=== PATIENT | male | born 1950 | race American Indian/Alaskan Native ===

== ENCOUNTER 2017-09-11 16:38 | Inpatient (IN) | payer MEDICARE ==
[2017-09-11] MEDS ORDERED: NACL 0.9% 1000 ML IV ONE (18:15)
[2017-09-11] MEDS ORDERED: TYLENOL PO PRN (18:15)
--- NOTE | 2017-09-11 18:19 | Emergency Department Report ---
ED General Adult HPI - General Chief complaint: Weakness Stated complaint: WEAKNESS/STIFFNESS Time Seen by Provider: 09/11/17 18:04 Source: patient, family, EMS (verbal report received from EMS.ems notes not available at time of chart dictation), RN notes reviewed Mode of arrival: Stretcher Limitations: Physical Limitation, Other (patient is delirious) - History of Present Illness Initial comments: Primary care Dr.: Dr. Gerardo Polk Past medical history: Hypertension, high cholesterol, possible BPH This is a 67-year-old male who is unknown to this provider who is brought to the hospital by EMS for generalized weakness. Last known well time a few days ago. Patient accompanied by daughter, who indicates that patient was his normal self on Sunday and Sunday. He was apparently found down at home, by roommates, uncertain duration of time, uncertain mechanism, EMS thinks it was at least 24 hours. EMS reported fever of 102 and tachycardia with normal blood pressure in the field. The patient has no recollection of any events. He denies headache, neck pain, chest pain, abdominal pain, shortness of breath and urinary symptoms. His daughter incidentally relates that he's lost 20 pounds over the past few months she's not sure if he's had colonoscopy or outpatient health care maintenance. -: Gradual Quality: other (see history of present illness) Consistency: other (see hpi) Improves with: other (see history of present illness) Worsens with: other (see history of present illness) Associated Symptoms: confusion, fever/chills, malaise, weakness - Related Data Home Medications Medication Instructions Recorded Confirmed Last Taken Ergocalciferol [Vitamin D2] 50,000 units PO QWEEK 09/11/17 09/11/17 Unknown Lisinopril [Zestril] 10 mg PO QDAY 09/11/17 09/11/17 Unknown Simvastatin [Zocor TAB] 20 mg PO QPM 09/11/17 09/11/17 Unknown Tamsulosin [Flomax] 0.4 mg PO QDAY 09/11/17 09/11/17 Unknown amLODIPine [Norvasc] 10 mg PO QDAY 09/11/17 09/11/17 Unknown Allergies Allergy/AdvReac Type Severity Reaction Status Date / Time shrimp Allergy Unknown Verified 09/12/17 14:19 ED Review of Systems ROS: Stated complaint: WEAKNESS/STIFFNESS Other details as noted in HPI Comment: Unobtainable due to pts medical conditions ED Past Medical Hx - Medications Home Medications: Home Medications Medication Instructions Recorded Confirmed Last Taken Type Ergocalciferol [Vitamin D2] 50,000 units PO QWEEK 09/11/17 09/11/17 Unknown History Lisinopril [Zestril] 10 mg PO QDAY 09/11/17 09/11/17 Unknown History Simvastatin [Zocor TAB] 20 mg PO QPM 09/11/17 09/11/17 Unknown History Tamsulosin [Flomax] 0.4 mg PO QDAY 09/11/17 09/11/17 Unknown History amLODIPine [Norvasc] 10 mg PO QDAY 09/11/17 09/11/17 Unknown History ED Physical Exam - General Limitations: Altered Mental Status, Physical Limitation, Other (patient is delirious and a poor historian) General appearance: alert, in no apparent distress - Head Head exam: Present: atraumatic, normocephalic - Eye Eye exam: Present: normal appearance, EOMI. Absent: nystagmus - ENT ENT exam: Present: mucous membranes dry - Neck Neck exam: Present: normal inspection, full ROM - Respiratory Respiratory exam: Present: normal lung sounds bilaterally, decreased breath sounds. Absent: respiratory distress - Cardiovascular Cardiovascular Exam: Present: normal rhythm, tachycardia, normal heart sounds. Absent: systolic murmur, diastolic murmur, rubs, gallop - GI/Abdominal GI/Abdominal exam: Present: soft, normal bowel sounds. Absent: distended, tenderness, guarding, rebound, rigid, pulsatile mass - Rectal Rectal exam: Present: normal inspection - exam: Present: normal inspection. Absent: testicular tenderness External exam: Present: normal external exam - Extremities Exam Extremities exam: Present: normal inspection, other (eczematous lesions noted on the bilateral lower extremities. 2+ pulses noted in the bilateral upper, lower extremities. Compartments soft. No long bony tenderness.). Absent: tenderness - Back Exam Back exam: Present: normal inspection, full ROM. Absent: paraspinal tenderness , vertebral tenderness - Neurological Exam Neurological exam: Present: alert, CN II-XII intact, other (Extraocular movements intact. Tongue midline. No facial droop. Facial sensation intact to light touch in the V1, V2, V3 distribution bilaterally. 5 and 5 strength in 4 extremities.. Sensation is intact to light touch in 4 extremities.). Absent : motor sensory deficit - Psychiatric Psychiatric exam: Present: normal affect, normal mood - Skin Skin exam: Present: warm. Absent: rash ED Course Vital Signs 09/11/17 09/11/17 09/11/17 18:08 18:10 18:15 Temperature 100.8 F H Pulse Rate 103 H 107 H 108 H Respiratory 20 23 18 Rate Blood Pressure 145/71 170/87 Blood Pressure 145/71 [Left] O2 Sat by Pulse 98 97 98 Oximetry 09/11/17 09/11/17 09/11/17 18:30 18:45 19:03 Temperature Pulse Rate 105 H 105 H 108 H Respiratory 12 29 H Rate Blood Pressure 154/80 150/79 150/79 Blood Pressure [Left] O2 Sat by Pulse 98 Oximetry 09/11/17 09/11/17 09/11/17 19:15 19:30 19:45 Temperature Pulse Rate 102 H 103 H 94 H Respiratory 31 H 25 H 23 Rate Blood Pressure 147/75 150/77 140/69 Blood Pressure [Left] O2 Sat by Pulse 96 97 97 Oximetry 09/11/17 09/11/17 09/11/17 19:48 20:00 20:15 Temperature Pulse Rate 108 H 104 H 111 H Respiratory 26 H 16 Rate Blood Pressure 137/76 137/68 Blood Pressure [Left] O2 Sat by Pulse 96 96 Oximetry 09/11/17 09/11/17 09/11/17 20:30 20:45 21:00 Temperature Pulse Rate 100 H 97 H 91 H Respiratory 25 H 25 H 25 H Rate Blood Pressure 140/75 138/75 136/71 Blood Pressure [Left] O2 Sat by Pulse 93 94 93 Oximetry 09/11/17 09/11/17 09/11/17 21:15 21:30 21:46 Temperature Pulse Rate 94 H 98 H 101 H Respiratory 26 H 27 H 22 Rate Blood Pressure 141/73 145/80 145/80 Blood Pressure [Left] O2 Sat by Pulse 93 95 Oximetry 09/11/17 09/11/17 09/11/17 22:00 22:15 22:30 Temperature Pulse Rate 91 H 105 H 92 H Respiratory 24 15 24 Rate Blood Pressure 133/74 165/105 149/78 Blood Pressure [Left] O2 Sat by Pulse 95 98 96 Oximetry 06/09/11/17 09/11/17 22:45 23:00 23:15 Temperature Pulse Rate 93 H 81 92 H Respiratory 20 20 17 Rate Blood Pressure 140/83 144/74 148/80 Blood Pressure [Left] O2 Sat by Pulse 98 97 98 Oximetry 09/11/17 09/11/17 09/11/17 23:30 23:33 23:41 Temperature Pulse Rate 95 H 97 H 90 Respiratory 25 H 26 H 20 Rate Blood Pressure 144/108 144/108 144/108 Blood Pressure [Left] O2 Sat by Pulse 97 100 99 Oximetry 09/12/17 00:07 Temperature 100.0 F H Pulse Rate 90 Respiratory 20 Rate Blood Pressure 137/78 Blood Pressure [Left] O2 Sat by Pulse 96 Oximetry - Reevaluation(s) Reevaluation #1: 09/11/17 18:27 Differential diagnosis, including are not limited to: Bacteremia, pneumonia, urinary tract infection, debility Assessment and plan: 67-year-old male with acute febrile illness, delirium, generalized weakness. He is febrile, tachycardic, with appropriate blood pressure. No obvious foci of infection clinically at this time. Patient will be treated empirically according to the sepsis pathway with IV fluids, ceftriaxone, daughter reports no recent hospitalizations, he will be admitted once his initial data points return. Reevaluation #2: 09/11/17 19:33 Dr Aiken accepts patient to the medical service Reevaluation #3: 09/11/17 19:41 chest with no obvious infiltrates. [facility] ED Medical Decision Making - Lab Data Result diagrams: 09/13/17 08:02 09/13/17 08:02 Sinus tachycardia, 103 bpm, premature complex, motion artifact, QTC within normal limits, not a stemi Vital Signs 09/11/17 09/11/17 09/11/17 18:08 18:10 18:15 Temperature 100.8 F H Pulse Rate 103 H 107 H 108 H Respiratory 20 23 18 Rate Blood Pressure 145/71 170/87 Blood Pressure 145/71 [Left] O2 Sat by Pulse 98 97 98 Oximetry 09/11/17 09/11/17 18:30 18:45 Temperature Pulse Rate 105 H 105 H Respiratory 12 29 H Rate Blood Pressure 154/80 150/79 Blood Pressure [Left] O2 Sat by Pulse 98 Oximetry Labs 09/11/17 09/11/17 09/11/17 18:16 18:47 18:47 WBC 10.0 RBC 4.50 Hgb 14.5 Hct 43.4 MCV 96 H MCH 32 MCHC 33 RDW 14.4 Plt Count 75 L Lymph % (Auto) 7.7 L [place] % (Auto) 12.0 H Eos % (Auto) 0.0 Baso % (Auto) 0.2 Lymph # 0.8 L [place] # 1.2 H Eos # 0.0 Baso # 0.0 Seg Neutrophils % 80.1 H Seg Neutrophils # 7.8 H APTT 35.1 Sodium Potassium Chloride Carbon Dioxide Anion Gap BUN Creatinine Estimated GFR BUN/Creatinine Ratio Glucose POC Glucose Lactic Acid Calcium Total Bilirubin AST ALT Alkaline Phosphatase Total Creatine Kinase Total Protein Albumin Albumin/Globulin Ratio Urine Color Ella Urine Turbidity Clear Urine pH 6.0 Ur Specific [place] 1.021 Urine Protein 100 mg/dl Urine Glucose (UA) Neg Urine Ketones Neg Urine Blood Lg Urine Nitrite Pos Urine Bilirubin Neg Urine Urobilinogen 4.0 Ur Leukocyte Esterase Lg Urine WBC (Auto) > 182.0 H Urine RBC (Auto) 4.0 U Epithel Cells (Auto) 2.0 Urine Bacteria (Auto) 4+ Urine WBC Clumps 3+ Urine Mucus 3+ 09/11/17 09/11/17 09/11/17 18:47 18:47 19:18 WBC RBC Hgb Hct MCV MCH MCHC RDW Plt Count Lymph % (Auto) [place] % (Auto) Eos % (Auto) Baso % (Auto) Lymph # [place] # Eos # Baso # Seg Neutrophils % Seg Neutrophils # APTT Sodium 139 Potassium 3.2 L Chloride 102.0 Carbon Dioxide 21 L Anion Gap 19 BUN 14 Creatinine 0.7 L Estimated GFR > 60 BUN/Creatinine Ratio 20 Glucose 96 POC Glucose 89 Lactic Acid 3.20 H* Calcium 8.5 Total Bilirubin 1.00 AST 59 H ALT 12 Alkaline Phosphatase 68 Total Creatine Kinase 1555 H Total Protein 8.4 H Albumin 3.0 L Albumin/Globulin Ratio 0.6 Urine Color Urine Turbidity Urine pH Ur Specific [place] Urine Protein Urine Glucose (UA) Urine Ketones Urine Blood Urine Nitrite Urine Bilirubin Urine Urobilinogen Ur Leukocyte Esterase Urine WBC (Auto) Urine RBC (Auto) U Epithel Cells (Auto) Urine Bacteria (Auto) Urine WBC Clumps Urine Mucus - EKG Data -: EKG Interpreted by [place] EKG shows normal: sinus rhythm, axis, intervals, QRS complexes, ST-T waves Rate: tachycardia - Radiology Data Radiology results: report reviewed, image reviewed Noncontrast CT scan of the brain is negative. X-ray of the chest to my interpretation is negative Critical care attestation.: If time is entered above; I have spent that time in minutes in the direct care of this critically ill patient, excluding procedure time. ED Disposition Clinical Impression: Sepsis Qualifiers: Sepsis type: sepsis due to unspecified organism Qualified Code(s): A41.9 - Sepsis, unspecified organism Disposition: 09 OP ADMIT IP TO THIS HOSP Is pt being admited?: Yes Condition: Fair
[2017-09-11 18:57] LABS: Monocytes # (Auto) 1.2 K/mm3 (0.0-0.8)
[2017-09-11] MEDS ORDERED: ROCEPHIN/NS 1 GM/50 ML 1 GM/50 ML BAG IV SCH (19:00)
[2017-09-11 19:15] LABS: Bacteria,Urine 4+ /HPF (Negative); Bilirubin,Urine NEG (Negative); Blood,Urine LG (Negative); Color,Urine Amber (Yellow); Mucus,Urine 3+ /HPF
[2017-09-11 19:22] LABS: WBC,Urine > 182.0 /HPF (0.0-6.0)
[2017-09-11 19:26] LABS: Alanine Aminotransferase 12 units/L (7-56); BUN/Creatinine Ratio 20; Blood Urea Nitrogen 14 mg/dL (9-20); Calcium 8.5 mg/dL (8.4-10.2); Hemolysis Index 5
[2017-09-11] MEDS ORDERED: cefTRIAXone 1 GM in NACL 0.9% 20 ML IV ONE (19:30)
[2017-09-11] MEDS ORDERED: K-DUR PO ONE ×2 (19:32→22:09)
--- NOTE | 2017-09-11 19:43 | Cat Scan Report ---
FINAL REPORT EXAM: CT HEAD/BRAIN WO CON HISTORY: syncope sepsis weakness trauma TECHNIQUE: Noncontrast CT axial images of the brain. PRIORS: None. FINDINGS: No parenchymal mass, hemorrhage, midline shift or hydrocephalus. No evidence of acute cortical infarct. No abnormal, extra-axial fluid or air collection. Patchy low density in the periventricular and subcortical white matter is nonspecific, but may relate to chronic small vessel ischemic change. Focal encephalomalacia in the right frontal region suggesting old ischemic change or infarct. Mild, diffuse volume loss. Osseous calvarium grossly intact. Mild mucosal thickening in the ethmoid sinuses. IMPRESSION: 1. No acute intracranial findings. 2. Chronic ischemic and atrophic changes.
[2017-09-11 19:44] LABS: Basophils % (Auto) 0.2 % (0.0-1.8); Hematocrit 43.4 % (35.5-45.6); Hemoglobin 14.5 gm/dl (11.8-15.2); Lymphocytes # (Auto) 0.8 K/mm3 (1.2-5.4); Lymphocytes % (Auto) 7.7 % (13.4-35.0); Mean Corpuscular HGB Conc 33 % (32-34); Mean Corpuscular Hemoglobin 32 pg (28-32); Mean Corpuscular Volume 96 fl (84-94); Red Cell Distribution Width 14.4 % (13.2-15.2)
[2017-09-11 19:45] LABS: Platelet Count 75 K/mm3 (140-440)
--- NOTE | 2017-09-11 20:01 | Cat Scan Report ---
FINAL REPORT EXAM: CT CERVICAL SPINE WO CON HISTORY: syncope sepsis weakness trauma TECHNIQUE: Spiral CT scanning of the cervical spine, with axial images and multiplanar reformations. PRIORS: None. FINDINGS: Diffuse osteopenia. Diffuse postsurgical change, including anterior compression screw plate fixation device posterior fixation hardware and interspace devices in the C3-6 levels. Multilevel degenerative disc disease and spondylosis, including C1-2 articulation. No acute compression deformity or gross malalignment of cervical vertebral bodies. No acute fracture identified. No acute, osseous central spinal canal encroachment. Paraspinal soft tissues grossly unremarkable. Mandibular condyles noted perched anteriorly on along the articular eminences may be positional versus subluxation. Correlate clinically. IMPRESSION: 1. No acute compression deformity or apparent fracture in the cervical spine. 2. Postsurgical change and degenerative spondylosis.
--- NOTE | 2017-09-11 21:10 | XRay Report ---
FINAL REPORT EXAM: XR CHEST 1V AP HISTORY: sepsios TECHNIQUE: Single, portable chest x-ray. PRIORS: None. FINDINGS: Cardiac and mediastinal silhouette within normal limits. Lungs are normally expanded, without significant vascular congestion. No focal consolidation or apparent pneumothorax. Bony thorax grossly unremarkable. IMPRESSION: 1. No acute consolidation.
[2017-09-11] MEDS ORDERED: ZOFRAN IV PRN (22:31)
[2017-09-11] MEDS ORDERED: SODIUM CHLORIDE FLUSH SYRINGE 10 ML IV PRN (22:31)
--- NOTE | 2017-09-11 22:34 | History and Physical Report ---
History of Present Illness Date of examination: 09/11/17 History of present illness: This is a 67-year-old man with history of hypertension was brought to the ER for evaluation. He was was found on the floor and couldnt get up. A review of system is difficult to obtain PAST MEDICAL HISTORY: hypertension PAST SURGICAL HISTORY: Unknown SOCIAL HISTORY: Unknown FAMILY HISTORY: Unknown Medications and Allergies Allergies Allergy/AdvReac Type Severity Reaction Status Date / Time shrimp Allergy Unknown Verified 09/12/17 14:19 Home Medications Medication Instructions Recorded Confirmed Last Taken Type Ergocalciferol [Vitamin D2] 50,000 units PO QWEEK 09/11/17 09/11/17 Unknown History Lisinopril [Zestril] 10 mg PO QDAY 09/11/17 09/11/17 Unknown History Simvastatin [Zocor TAB] 20 mg PO QPM 09/11/17 09/11/17 Unknown History Tamsulosin [Flomax] 0.4 mg PO QDAY 09/11/17 09/11/17 Unknown History amLODIPine [Norvasc] 10 mg PO QDAY 09/11/17 09/11/17 Unknown History Active Meds: Active Medications Acetaminophen (Tylenol) 650 mg PO Q6H PRN PRN Reason: Pain, Mild (1-3) Last Admin: 09/11/17 18:40 Dose: 650 mg Acetaminophen (Tylenol) 650 mg PO Q4H PRN PRN Reason: Pain MILD(1-3)/Fever >100.5/LINDSEY Amlodipine Besylate (Norvasc) 10 mg PO QDAY [facility] Enoxaparin Sodium (Lovenox) 30 mg SUB-Q QDAY [facility] Sodium Chloride (Nacl 0.9% 1000 Ml) 1,000 mls @ 100 mls/hr IV DIRECT A[facility]ON Lisinopril (Zestril) 10 mg PO QDAY [facility] Miscellaneous Medication (Simvastatin) 20 mg PO QPM [facility] Ondansetron HCl (Zofran) 4 mg IV Q8H PRN PRN Reason: Nausea And Vomiting Sodium Chloride (Sodium Chloride Flush Syringe 10 Ml) 10 ml IV BID AARON Sodium Chloride (Sodium Chloride Flush Syringe 10 Ml) 10 ml IV PRN PRN PRN Reason: LINE FLUSH Tamsulosin HCl (Flomax) 0.4 mg PO QDAY [facility] Exam - Physical Exam Narrative exam: Gen. appearance: Patient lying in bed, no apparent distress HEENT: Normocephalic, atraumatic, pupils equally round and reactive to light, extraocular movement intact, and no sclericterus,. No JVD or thyromegaly or nodule,neck supple, no carotid bruit ,mucous membranes dry, no exudate or erythema Heart: S1, S2, regular rate and rhythm Lungs: Clear bilaterally, breathing comfortable Abdomen: Positive bowel sounds, nontender, nondistended, no organomegaly Extremity:no edema cyanosis, clubbing Neuro: Oriented to self, cranial nerves II-12 intact, speech is fluent, moves all 4 extremities - Constitutional Vitals: Temp Pulse Resp BP Pulse Ox 100.8 F H 108 H 25 H 150/77 97 09/11/17 18:10 09/11/17 19:48 09/11/17 19:30 09/11/17 19:30 09/11/17 19:30 Results - Labs CBC & Chem 7: 09/12/17 14:00 09/12/17 14:00 Labs: Abnormal lab results 09/11/17 09/11/17 09/11/17 Range/Units 18:16 18:47 18:47 MCV 96 H (84-94) fl Plt Count 75 L (140-440) K/mm3 Lymph % (Auto) 7.7 L (13.4-35.0) % [place] % (Auto) 12.0 H (0.0-7.3) % Lymph # 0.8 L (1.2-5.4) K/mm3 [place] # 1.2 H (0.0-0.8) K/mm3 Seg Neutrophils % 80.1 H (40.0-70.0) % Seg Neutrophils # 7.8 H (1.8-7.7) K/mm3 Potassium 3.2 L (3.6-5.0) mmol/L Carbon Dioxide 21 L (22-30) mmol/L Creatinine 0.7 L (0.8-1.5) mg/dL Lactic Acid (0.7-2.0) mmol/L AST 59 H (5-40) units/L Total Creatine Kinase 1555 H (55-170) units/L Total Protein 8.4 H (6.3-8.2) g/dL Albumin 3.0 L (3.9-5) g/dL Urine WBC (Auto) > 182.0 H (0.0-6.0) /HPF 09/11/17 Range/Units 18:47 MCV (84-94) fl Plt Count (140-440) K/mm3 Lymph % (Auto) (13.4-35.0) % [place] % (Auto) (0.0-7.3) % Lymph # (1.2-5.4) K/mm3 [place] # (0.0-0.8) K/mm3 Seg Neutrophils % (40.0-70.0) % Seg Neutrophils # (1.8-7.7) K/mm3 Potassium (3.6-5.0) mmol/L Carbon Dioxide (22-30) mmol/L Creatinine (0.8-1.5) mg/dL Lactic Acid 3.20 H* (0.7-2.0) mmol/L AST (5-40) units/L Total Creatine Kinase (55-170) units/L Total Protein (6.3-8.2) g/dL Albumin (3.9-5) g/dL Urine WBC (Auto) (0.0-6.0) /HPF Assessment and Plan Assessment Encephalopathy due to UTI Rhabdomyolysis UTI Hypertension Paln Admit to medicine Start IV antibiotic,fluid, follow cultures Continue appropiate outpatient medications
[2017-09-11] MEDS ORDERED: cefTRIAXone 1 GM in NACL 0.9% 20 ML IV SCH (23:00)
--- NOTE | 2017-09-12 09:39 | Progress Note ---
Assessment and Plan Assessment and plan: --Metabolic encephalopathy; Probably secondary to UTI, supportive care --History of fall; fall precautions physical therapy occupational therapy --Bilateral Lower extremity weakness; PT OT Consider MRI lumbosacral spine --History of spine surgery; supportive care PT OT as needed --Sepsis secondary to urinary tract infection; Continue empiric antibiotics, follow cultures --Rhabdomyolysis; IV fluids and trend creatinine levels,Preserved renal function --Hypertension; moderate control Continue current antihypertensives and when necessary medications --Dyslipidemia; continue lipid lowering medicine and low cholesterol diet --History of BPH; resume Flomax --DVT prophylaxis with Lovenox We'll closely monitor the patient and adjust management as needed History Interval history: Patient was admitted with a history of found on the floor, unable to get up Patient feels slightly better, No new episodes of fall Workup is in progress Vital Signs reviewed Hospitalist Physical - Constitutional Vitals: Temp Pulse Resp BP Pulse Ox 100.0 F H 90 20 137/78 96 09/12/17 00:07 09/12/17 00:07 09/12/17 00:07 09/12/17 00:07 09/12/17 00:07 General appearance: Present: no acute distress, cachectic, disheveled - EENT Eyes: Present: PERRL, EOM intact - Neck Neck: Present: supple, normal ROM - Respiratory Respiratory effort: normal Respiratory: bilateral: diminished, negative: rales, rhonchi, wheezing - Cardiovascular Rhythm: regular Heart Sounds: Present: S1 & S2 - Extremities Extremities: no ischemia, No edema - Abdominal General gastrointestinal: soft, non-tender, non-distended, normal bowel sounds - Integumentary Integumentary: Present: clear, warm - Psychiatric Psychiatric: appropriate mood/affect, cooperative - Neurologic Neurologic: CNII-XII intact, moves all extremities Results - Labs CBC & Chem 7: 09/13/17 08:02 09/13/17 08:02 Labs: Laboratory Last Values WBC 10.0 K/mm3 (4.5-11.0) 09/11/17 18:47 RBC 4.50 M/mm3 (3.65-5.03) 09/11/17 18:47 Hgb 14.5 gm/dl (11.8-15.2) 09/11/17 18:47 Hct 43.4 % (35.5-45.6) 18 18:47 MCV 96 fl (84-94) H 18 18:47 MCH 32 pg (28-32) 18 18:47 MCHC 33 % (32-34) 18 18:47 RDW 14.4 % (13.2-15.2) 18 18:47 Plt Count 75 K/mm3 (140-440) L 09/11/17 18:47 Lymph % (Auto) 7.7 % (13.4-35.0) L 18 18:47 [place] % (Auto) 12.0 % (0.0-7.3) H 09/11/17 18:47 Eos % (Auto) 0.0 % (0.0-4.3) 09/11/17 18:47 Baso % (Auto) 0.2 % (0.0-1.8) 09/11/17 18:47 Lymph # 0.8 K/mm3 (1.2-5.4) L 09/11/17 18:47 [place] # 1.2 K/mm3 (0.0-0.8) H 18 18:47 Eos # 0.0 K/mm3 (0.0-0.4) 18 18:47 Baso # 0.0 K/mm3 (0.0-0.1) 18 18:47 Seg Neutrophils % 80.1 % (40.0-70.0) H 09/11/17 18:47 Seg Neutrophils # 7.8 K/mm3 (1.8-7.7) H 18 18:47 APTT 35.1 Sec. (24.2-36.6) 18 18:47 Sodium 139 mmol/L (137-145) 18 18:47 Potassium 3.2 mmol/L (3.6-5.0) L 09/11/17 18:47 Chloride 102.0 mmol/L (98-107) 18 18:47 Carbon Dioxide 21 mmol/L (22-30) L 18 18:47 Anion Gap 19 mmol/L 09/11/17 18:47 BUN 14 mg/dL (9-20) 09/11/17 18:47 Creatinine 0.7 mg/dL (0.8-1.5) L 09/11/17 18:47 Estimated GFR > 60 ml/min 09/11/17 18:47 BUN/Creatinine Ratio 20 % 09/11/17 18:47 Glucose 96 mg/dL (75-100) 09/11/17 18:47 POC Glucose 89 (70-105) 09/11/17 19:18 Lactic Acid 1.50 mmol/L (0.7-2.0) 09/11/17 19:59 Calcium 8.5 mg/dL (8.4-10.2) 09/11/17 18:47 Magnesium 2.00 mg/dL (1.7-2.3) 09/11/17 19:35 Total Bilirubin 1.00 mg/dL (0.1-1.2) 09/11/17 18:47 AST 59 units/L (5-40) H 09/11/17 18:47 ALT 12 units/L (7-56) 09/11/17 18:47 Alkaline Phosphatase 68 units/L (35-129) 09/11/17 18:47 Total Creatine Kinase 1555 units/L (55-170) H 09/11/17 18:47 Total Protein 8.4 g/dL (6.3-8.2) H 09/11/17 18:47 Albumin 3.0 g/dL (3.9-5) L 09/11/17 18:47 Albumin/Globulin Ratio 0.6 % 09/11/17 18:47 Urine Color Ella (Yellow) 09/11/17 18:16 Urine Turbidity Clear (Clear) 09/11/17 18:16 Urine pH 6.0 (5.0-7.0) 09/11/17 18:16 Ur Specific [place] 1.021 (1.003-1.030) 09/11/17 18:16 Urine Protein 100 mg/dl mg/dL (Negative) 09/11/17 18:16 Urine Glucose (UA) Neg mg/dL (Negative) 09/11/17 18:16 Urine Ketones Neg mg/dL (Negative) 09/11/17 18:16 Urine Blood Lg (Negative) 09/11/17 18:16 Urine Nitrite Pos (Negative) 09/11/17 18:16 Urine Bilirubin Neg (Negative) 09/11/17 18:16 Urine Urobilinogen 4.0 mg/dL (<2.0) 09/11/17 18:16 Ur Leukocyte Esterase Lg (Negative) 09/11/17 18:16 Urine WBC (Auto) > 182.0 /HPF (0.0-6.0) H 09/11/17 18:16 Urine RBC (Auto) 4.0 /HPF (0.0-6.0) 09/11/17 18:16 U Epithel Cells (Auto) 2.0 /HPF (0-13.0) 09/11/17 18:16 Urine Bacteria (Auto) 4+ /HPF (Negative) 09/11/17 18:16 Urine WBC Clumps 3+ /HPF 09/11/17 18:16 Urine Mucus 3+ /HPF 09/11/17 18:16 Blood Type A POSITIVE 09/11/17 18:40 Antibody Screen Negative 09/11/17 18:40
[2017-09-12] MEDS ORDERED: ROCEPHIN/NS 1 GM/50 ML 1 GM/50 ML BAG IV SCH (10:00)
[2017-09-12] MEDS: ZESTRIL PO SCH (12:12)
[2017-09-12] MEDS: NORVASC PO SCH (12:13)
[2017-09-12] MEDS: FLOMAX PO SCH (12:13)
[2017-09-12] MEDS: LOVENOX SUB-Q SCH (12:13)
[2017-09-12] MEDS: SODIUM CHLORIDE FLUSH SYRINGE 10 ML IV SCH ×2 (12:14→22:51)
[2017-09-12] MEDS: cefTRIAXone 1 GM in NACL 0.9% 20 ML IV SCH (12:55)
[2017-09-12 14:45] LABS: Basophils % (Auto) 0.2 % (0.0-1.8); Hematocrit 42.6 % (35.5-45.6); Hemoglobin 14.3 gm/dl (11.8-15.2); Lymphocytes # (Auto) 0.9 K/mm3 (1.2-5.4); Lymphocytes % (Auto) 6.5 % (13.4-35.0); Mean Corpuscular HGB Conc 34 % (32-34); Mean Corpuscular Hemoglobin 33 pg (28-32); Mean Corpuscular Volume 97 fl (84-94); Monocytes # (Auto) 1.1 K/mm3 (0.0-0.8); Monocytes % (Auto) 8.4 % (0.0-7.3); Red Cell Distribution Width 14.7 % (13.2-15.2)
[2017-09-12] MEDS: TYLENOL PO PRN ×2 (14:54→20:49)
[2017-09-12 14:58] LABS: Platelet Count 68 K/mm3 (140-440)
[2017-09-12 15:02] LABS: BUN/Creatinine Ratio 20; Blood Urea Nitrogen 12 mg/dL (9-20); Calcium 8.1 mg/dL (8.4-10.2); Hemolysis Index 25
[2017-09-12] MEDS: NACL 0.9% 1000 ML 1,000 ML IV SCH (19:19)
[2017-09-12] MEDS ORDERED: K-DUR PO ONE (22:00)
[2017-09-12] MEDS: PRAVACHOL PO SCH (22:50)
[2017-09-13] MEDS: TYLENOL PO PRN (04:17)
[2017-09-13] MEDS: NACL 0.9% 1000 ML 1,000 ML IV SCH (04:18)
[2017-09-13 08:17] LABS: Basophils % (Auto) 0.2 % (0.0-1.8); Eosinophils % (Auto) 0.1 % (0.0-4.3); Hematocrit 38.8 % (35.5-45.6); Lymphocytes % (Auto) 12.2 % (13.4-35.0); Mean Corpuscular HGB Conc 34 % (32-34); Mean Corpuscular Hemoglobin 32 pg (28-32); Mean Corpuscular Volume 96 fl (84-94); Monocytes # (Auto) 0.7 K/mm3 (0.0-0.8); Monocytes % (Auto) 8.6 % (0.0-7.3); Red Blood Count 4.05 M/mm3 (3.65-5.03); Red Cell Distribution Width 14.5 % (13.2-15.2)
[2017-09-13 08:19] LABS: Platelet Count 53 K/mm3 (140-440)
[2017-09-13 08:37] LABS: BUN/Creatinine Ratio 23; Blood Urea Nitrogen 9 mg/dL (9-20); Calcium 7.8 mg/dL (8.4-10.2); Hemolysis Index 7
[2017-09-13] MEDS: NORVASC PO SCH (09:35)
[2017-09-13] MEDS: ZESTRIL PO SCH (09:35)
[2017-09-13] MEDS: LOVENOX SUB-Q SCH (09:36)
[2017-09-13] MEDS: FLOMAX PO SCH (09:36)
[2017-09-13] MEDS: cefTRIAXone 1 GM in NACL 0.9% 20 ML IV SCH (09:36)
[2017-09-13] MEDS: K-DUR PO SCH (09:36)
[2017-09-13] MEDS: SODIUM CHLORIDE FLUSH SYRINGE 10 ML IV SCH ×2 (09:37→23:12)
--- NOTE | 2017-09-13 11:28 | Progress Note ---
Assessment and Plan Assessment and plan: --Metabolic encephalopathy; Probably secondary to UTI, supportive care --History of fall; fall precautions physical therapy occupational therapy --Bilateral Lower extremity weakness; PT OT Consider MRI lumbosacral spine, neurology consult --History of spine surgery; supportive care PT OT as needed --Sepsis secondary to urinary tract infection; Continue empiric antibiotics, follow cultures --Rhabdomyolysis; IV fluids and trend creatinine levels,Preserved renal function --Hypertension; moderate control Continue current antihypertensives and when necessary medications --Dyslipidemia; continue lipid lowering medicine and low cholesterol diet --History of BPH; resume Flomax --DVT prophylaxis with Lovenox We'll closely monitor the patient and adjust management as needed History Interval history: Patient seen and examined medical records reviewed Complaints of generalized weakness lower extremities Alert awake oriented 3 vital signs reviewed, Hospitalist Physical - Constitutional Vitals: Temp Pulse Resp BP Pulse Ox 98.8 F 73 18 125/66 99 09/13/17 08:51 09/13/17 09:35 09/13/17 08:51 09/13/17 09:35 09/13/17 08:51 General appearance: Present: no acute distress, cachectic, disheveled - EENT Eyes: Present: PERRL, EOM intact - Neck Neck: Present: supple, normal ROM - Respiratory Respiratory effort: normal Respiratory: bilateral: diminished, negative: rales, rhonchi, wheezing - Cardiovascular Rhythm: regular Heart Sounds: Present: S1 & S2 - Extremities Extremities: no ischemia, No edema, abnormal (lower extremity weakness) - Abdominal General gastrointestinal: soft, non-tender, non-distended, normal bowel sounds - Integumentary Integumentary: Present: clear, warm - Psychiatric Psychiatric: appropriate mood/affect, cooperative - Neurologic Neurologic: CNII-XII intact, moves all extremities Results - Labs CBC & Chem 7: 09/13/17 08:02 09/13/17 08:02 Labs: Laboratory Last Values WBC 7.8 K/mm3 (4.5-11.0) 09/13/17 08:02 RBC 4.05 M/mm3 (3.65-5.03) 09/13/17 08:02 Hgb 13.0 gm/dl (11.8-15.2) 09/13/17 08:02 Hct 38.8 % (35.5-45.6) 09/13/17 08:02 MCV 96 fl (84-94) H 09/13/17 08:02 MCH 32 pg (28-32) 09/13/17 08:02 MCHC 34 % (32-34) 09/13/17 08:02 RDW 14.5 % (13.2-15.2) 09/13/17 08:02 Plt Count 53 K/mm3 (140-440) L 09/13/17 08:02 Lymph % (Auto) 12.2 % (13.4-35.0) L 09/13/17 08:02 [place] % (Auto) 8.6 % (0.0-7.3) H 09/13/17 08:02 Eos % (Auto) 0.1 % (0.0-4.3) 09/13/17 08:02 Baso % (Auto) 0.2 % (0.0-1.8) 09/13/17 08:02 Lymph # 1.0 K/mm3 (1.2-5.4) L 09/13/17 08:02 [place] # 0.7 K/mm3 (0.0-0.8) 09/13/17 08:02 Eos # 0.0 K/mm3 (0.0-0.4) 09/13/17 08:02 Baso # 0.0 K/mm3 (0.0-0.1) 09/13/17 08:02 Seg Neutrophils % 78.9 % (40.0-70.0) H 09/13/17 08:02 Seg Neutrophils # 6.2 K/mm3 (1.8-7.7) 09/13/17 08:02 APTT 35.1 Sec. (24.2-36.6) 09/11/17 18:47 Sodium 139 mmol/L (137-145) 09/13/17 08:02 Potassium 3.4 mmol/L (3.6-5.0) L 09/13/17 08:02 Chloride 105.2 mmol/L (98-107) 09/13/17 08:02 Carbon Dioxide 24 mmol/L (22-30) 09/13/17 08:02 Anion Gap 13 mmol/L 09/13/17 08:02 BUN 9 mg/dL (9-20) 09/13/17 08:02 Creatinine 0.4 mg/dL (0.8-1.5) L 09/13/17 08:02 Estimated GFR > 60 ml/min 09/13/17 08:02 BUN/Creatinine Ratio 23 % 09/13/17 08:02 Glucose 78 mg/dL (75-100) 09/13/17 08:02 POC Glucose 89 (70-105) 09/11/17 19:18 Lactic Acid 1.50 mmol/L (0.7-2.0) 09/11/17 19:59 Calcium 7.8 mg/dL (8.4-10.2) L 09/13/17 08:02 Magnesium 2.00 mg/dL (1.7-2.3) 09/11/17 19:35 Total Bilirubin 1.00 mg/dL (0.1-1.2) 09/11/17 18:47 AST 59 units/L (5-40) H 09/11/17 18:47 ALT 12 units/L (7-56) 09/11/17 18:47 Alkaline Phosphatase 68 units/L (35-129) 09/11/17 18:47 Total Creatine Kinase 2.62 units/L (55-170) L 09/13/17 08:02 Total Protein 8.4 g/dL (6.3-8.2) H 09/11/17 18:47 Albumin 3.0 g/dL (3.9-5) L 09/11/17 18:47 Albumin/Globulin Ratio 0.6 % 09/11/17 18:47 Urine Color Ella (Yellow) 09/11/17 18:16 Urine Turbidity Clear (Clear) 09/11/17 18:16 Urine pH 6.0 (5.0-7.0) 09/11/17 18:16 Ur Specific [place] 1.021 (1.003-1.030) 09/11/17 18:16 Urine Protein 100 mg/dl mg/dL (Negative) 09/11/17 18:16 Urine Glucose (UA) Neg mg/dL (Negative) 09/11/17 18:16 Urine Ketones Neg mg/dL (Negative) 09/11/17 18:16 Urine Blood Lg (Negative) 09/11/17 18:16 Urine Nitrite Pos (Negative) 09/11/17 18:16 Urine Bilirubin Neg (Negative) 09/11/17 18:16 Urine Urobilinogen 4.0 mg/dL (<2.0) 09/11/17 18:16 Ur Leukocyte Esterase Lg (Negative) 09/11/17 18:16 Urine WBC (Auto) > 182.0 /HPF (0.0-6.0) H 09/11/17 18:16 Urine RBC (Auto) 4.0 /HPF (0.0-6.0) 09/11/17 18:16 U Epithel Cells (Auto) 2.0 /HPF (0-13.0) 09/11/17 18:16 Urine Bacteria (Auto) 4+ /HPF (Negative) 09/11/17 18:16 Urine WBC Clumps 3+ /HPF 09/11/17 18:16 Urine Mucus 3+ /HPF 09/11/17 18:16 Blood Type A POSITIVE 09/11/17 18:40 Antibody Screen Negative 09/11/17 18:40
--- NOTE | 2017-09-13 13:56 | Consultation ---
History of Present Illness Consult date: 09/13/17 Requesting physician: THI MONZON Reason for Consult: AMS and leg weakness. Chief complaint: Confuse and leg weakness. History of present illness: 67 years old right handed male with a past medical history of arthritis and HTN, presented for confuse and leg weakness. He has had both leg weakness for one and a half year. His legs also were painful to touch. He saw physician for these, but can't tell what kind of doctor's. He also was confuse on Sunday, but improved.The HPI was obtained from him and his daughter at bed side. Past History Past Medical History: arthritis, hypertension Past Surgical History: Other (cervical spinal laminectomy and fusions.) Social history: other (tobacco, alcohol and marijuana.) Medications and Allergies Allergies Allergy/AdvReac Type Severity Reaction Status Date / Time shrimp Allergy Unknown Verified 09/12/17 14:19 Home Medications Medication Instructions Recorded Confirmed Last Taken Type Ergocalciferol [Vitamin D2] 50,000 units PO QWEEK 09/11/17 09/11/17 Unknown History Lisinopril [Zestril] 10 mg PO QDAY 09/11/17 09/11/17 Unknown History Simvastatin [Zocor TAB] 20 mg PO QPM 09/11/17 09/11/17 Unknown History Tamsulosin [Flomax] 0.4 mg PO QDAY 09/11/17 09/11/17 Unknown History amLODIPine [Norvasc] 10 mg PO QDAY 09/11/17 09/11/17 Unknown History Active Meds: Active Medications Acetaminophen (Tylenol) 650 mg PO Q4H PRN PRN Reason: Pain MILD(1-3)/Fever >100.5/LINDSEY Last Admin: 09/13/17 04:17 Dose: 650 mg Amlodipine Besylate (Norvasc) 10 mg PO QDAY [facility] Last Admin: 09/13/17 09:35 Dose: 10 mg Enoxaparin Sodium (Lovenox) 40 mg SUB-Q QDAY [facility] Last Admin: 09/13/17 09:36 Dose: 40 mg Sodium Chloride (Nacl 0.9% 1000 Ml) 1,000 mls @ 100 mls/hr IV DIRECT [facility] Last Admin: 09/13/17 04:18 Dose: 100 mls/hr Ceftriaxone Sodium 1 gm/ (Sodium Chloride) 20 mls @ 2 mls/min IV Q24HR [facility] Last Admin: 09/13/17 09:36 Dose: 2 mls/min Lisinopril (Zestril) 10 mg PO QDAY [facility] Last Admin: 09/13/17 09:35 Dose: 10 mg Ondansetron HCl (Zofran) 4 mg IV Q8H PRN PRN Reason: Nausea And Vomiting Potassium Chloride (K-Dur) 30 meq PO QDAY [facility] Last Admin: 09/13/17 09:36 Dose: 30 meq Pravastatin Sodium (Pravachol) 40 mg PO QHS [facility] Last Admin: 09/12/17 22:50 Dose: 40 mg Sodium Chloride (Sodium Chloride Flush Syringe 10 Ml) 10 ml IV BID [facility] Last Admin: 09/13/17 09:37 Dose: 10 ml Sodium Chloride (Sodium Chloride Flush Syringe 10 Ml) 10 ml IV PRN PRN PRN Reason: LINE FLUSH Tamsulosin HCl (Flomax) 0.4 mg PO QDAY [facility] Last Admin: 09/13/17 09:36 Dose: 0.4 mg Review of Systems Constitutional: other (both leg weakness, leg skin collors changes. All other 10 points of systems are reviewed and negative.) Physical Examination - Vital Signs Vital Signs: Vital Signs Pulse Resp Pulse Ox 103 H 20 98 09/11/17 18:08 09/11/17 18:08 09/11/17 18:08 - Constitutional General appearance: comfortable - EENT EENT: Present: PERRL, mucous membranes moist - Respiratory Respiratory: Present: chest non-tender, lungs clear - Cardiovascular Cardiovascular: Present: regular rate, no murmurs Extremities: Present: no peripheral edema bilatateraly, no clubbing, cyanosis, chronic venous stasis change - Gastrointestinal Gastrointestinal: Present: soft, non-tender - Integumentary Integumentary: Present: erythema - Neurologic Cranial nerve examination: PERRL, EOMI, V1/V2/V3 grossly intact, intact Speech examination: intact Detailed motor examination: other (uppers 5/5, lowers, proximal 2/5, distal 3/5 bilaterally.) Reflexes: 0: ankle, knee, 1+: bicep, tricep - Musculoskeletal Musculoskeletal: Present: other (tenderness in both legs.) - Psychiatric Psychiatric: Present: mood/affect appropriate Results - Laboratory Findings CBC and BMP: 09/13/17 08:02 09/13/17 08:02 Abnormal Lab Findings: Abnormal Labs 09/11/17 09/11/17 09/11/17 18:16 18:47 18:47 WBC MCV 96 H MCH Plt Count 75 L Lymph % (Auto) 7.7 L [place] % (Auto) 12.0 H Lymph # 0.8 L [place] # 1.2 H Seg Neutrophils % 80.1 H Seg Neutrophils # 7.8 H Potassium 3.2 L Carbon Dioxide 21 L Creatinine 0.7 L Lactic Acid Calcium AST 59 H Total Creatine Kinase 1555 H Total Protein 8.4 H Albumin 3.0 L Urine WBC (Auto) > 182.0 H 09/11/17 09/12/17 09/12/17 18:47 14:00 14:00 WBC 13.4 H MCV 97 H MCH 33 H Plt Count 68 L Lymph % (Auto) 6.5 L [place] % (Auto) 8.4 H Lymph # 0.9 L [place] # 1.1 H Seg Neutrophils % 84.9 H Seg Neutrophils # 11.3 H Potassium 3.4 L Carbon Dioxide Creatinine 0.6 L Lactic Acid 3.20 H* Calcium 8.1 L AST Total Creatine Kinase Total Protein Albumin Urine WBC (Auto) 09/13/17 09/13/17 08:02 08:02 WBC MCV 96 H MCH Plt Count 53 L Lymph % (Auto) 12.2 L [place] % (Auto) 8.6 H Lymph # 1.0 L [place] # Seg Neutrophils % 78.9 H Seg Neutrophils # Potassium 3.4 L Carbon Dioxide Creatinine 0.4 L Lactic Acid Calcium 7.8 L AST Total Creatine Kinase 2.62 L Total Protein Albumin Urine WBC (Auto) Assessment and Plan 1. Progressively both leg weakness for one and half years, proximal > distal, probably myopathy, peripheral neuropathy as differential. Lumbar MRI without contrast. 2. CK was high. TSH, red rate and B12 level. 3. OT/PT, rehab. 4. Quit multiple substance abuse. Thiamine. 5. DVT prophylaxis. Suggest Doppler legs. 6. AMS. Resolved. Probably encephalopathy due to UTI. 7. UTI. Antibiotics. 8. Plan discussed with him and his daughter at bed side. 9. If D/C, F/U with neurology in 4-6 weeks.
[2017-09-13] MEDS: PRAVACHOL PO SCH (23:12)
[2017-09-14] MEDS: NACL 0.9% 1000 ML 1,000 ML IV SCH ×2 (01:04→12:04)
--- NOTE | 2017-09-14 10:11 | Progress Note ---
Assessment and Plan 1. Progressively both leg weakness for one and half years, proximal > distal, probably myopathy, peripheral neuropathy as differential. Pending lumbar MRI without contrast. If negative, will consider thoracic and cervical spinal MRI without contrast. If spinal stenosis, orthopaedic or neurosurgery consult. 2. CK, creatinine, TSH, and B12 level, all normal ranges. Pending sed rate. 3. OT/PT, rehab. 4. Quit multiple substance abuse. Thiamine. 5. DVT prophylaxis. Suggest Doppler legs. 6. AMS. Resolved. Probably encephalopathy due to UTI or sepsis. 7. UTI. Antibiotics. 8. Please call weekend coverage neurology for following or further suggestions. 9. Plan discussed with him. 10. If D/C, F/U with neurology in 4-6 weeks, need out patient nerve conduction, EMG studies. May need muscle or nerve biopsy. Subjective Date of service: 09/14/17 Principal diagnosis: leg weakness. Interval history: Improved. No new neurological complaints. Objective - Vital Sign Vital Signs - 12hr 09/14/17 09/14/17 01:38 08:08 Temperature 100.1 F H 99.2 F Pulse Rate 88 82 Respiratory 18 18 Rate Blood Pressure 137/67 137/77 O2 Sat by Pulse 98 97 Oximetry - General Apperance Constitutional: comfortable - EENT EENT: PERRL, mucous membranes moist - Respiratory Respiratory: chest non-tender, lungs clear - Cardiovascular Cardiovascular: regular rate, no murmurs - Gastrointestinal Gastrointestinal: soft, non-tender - Integumentary Integumentary: normal - Neurologic Cranial nerve examination: PERRL, EOMI, V1/V2/V3 grossly intact, intact Speech examination: intact Detailed motor examination: other (U[place] 5/5, loweres, proximal 2/5, distal 3/ 5 bilaterally. Leg tenderness to touch.) Detailed sensory examination: other (decreased in lowers.) Reflexes: 0: ankle, knee, 1+: bicep, tricep - Laboratory Findings CBC and BMP: 09/13/17 08:02 09/13/17 08:02 Abnormal Lab Findings: Abnormal Labs 09/11/17 09/11/17 09/11/17 18:16 18:47 18:47 WBC MCV 96 H MCH Plt Count 75 L Lymph % (Auto) 7.7 L [place] % (Auto) 12.0 H Lymph # 0.8 L [place] # 1.2 H Seg Neutrophils % 80.1 H Seg Neutrophils # 7.8 H Potassium 3.2 L Carbon Dioxide 21 L Creatinine 0.7 L Lactic Acid Calcium AST 59 H Total Creatine Kinase 1555 H Total Protein 8.4 H Albumin 3.0 L Urine WBC (Auto) > 182.0 H 09/11/17 09/12/17 09/12/17 18:47 14:00 14:00 WBC 13.4 H MCV 97 H MCH 33 H Plt Count 68 L Lymph % (Auto) 6.5 L [place] % (Auto) 8.4 H Lymph # 0.9 L [place] # 1.1 H Seg Neutrophils % 84.9 H Seg Neutrophils # 11.3 H Potassium 3.4 L Carbon Dioxide Creatinine 0.6 L Lactic Acid 3.20 H* Calcium 8.1 L AST Total Creatine Kinase Total Protein Albumin Urine WBC (Auto) 09/13/17 09/13/17 08:02 08:02 WBC MCV 96 H MCH Plt Count 53 L Lymph % (Auto) 12.2 L [place] % (Auto) 8.6 H Lymph # 1.0 L [place] # Seg Neutrophils % 78.9 H Seg Neutrophils # Potassium 3.4 L Carbon Dioxide Creatinine 0.4 L Lactic Acid Calcium 7.8 L AST Total Creatine Kinase 2.62 L Total Protein Albumin Urine WBC (Auto)
[2017-09-14] MEDS: K-DUR PO SCH (12:04)
[2017-09-14] MEDS: FLOMAX PO SCH (12:04)
[2017-09-14] MEDS: cefTRIAXone 1 GM in NACL 0.9% 20 ML IV SCH (12:05)
[2017-09-14] MEDS: LOVENOX SUB-Q SCH (12:05)
[2017-09-14] MEDS: NORVASC PO SCH (12:05)
[2017-09-14] MEDS: ZESTRIL PO SCH (12:05)
[2017-09-14] MEDS: SODIUM CHLORIDE FLUSH SYRINGE 10 ML IV SCH ×2 (12:06→21:27)
[2017-09-14] MEDS: TYLENOL PO PRN (15:56)
--- NOTE | 2017-09-14 18:35 | Magnetic Resonance Report ---
FINAL REPORT EXAM: MR LUMBAR SPINE WO CON HISTORY: Bilateral leg weakness. TECHNIQUE: MRI examination of the lumbar spine without IV contrast pt motion BA: 09/14/2017 PRIORS: None. FINDINGS: Numbering for this exam assumes that there are 5 non-rib bearing lumbar vertebral bodies. Recommend correlation with lumbar x-rays to ensure accurate vertebral numbering prior to consideration of surgery or other lumbar intervention in this patient. Patient motion artifact degrades image quality and limits the examination. Conus medullaris signal and position: Normal Marrow signal changes adjacent to the following disc levels, likely from degenerative disc disease: T11 through S1. Heterogeneous vertebral bone marrow signal may be from a mixture of red and yellow marrow. Bone marrow edema: None Vertebral compression fracture: None Anterolisthesis: None Retrolisthesis: None Disc narrowing: None Diffuse disc bulge: T12-L1 minimal, L3-4 slight, L4-5 slight, L5-S1 slight Focal disc protrusion: None Central canal stenosis: L3-4 moderate, L4-5 slight to moderate Lateral recess stenosis: T11-12 slight right, L3-4 moderate bilateral, L4-5 moderate bilateral, L5-S1 slight to moderate bilateral There is multilevel degenerative hypertrophic changes at the facet joints and vertebral endplates. Along with disc bulge, these contribute to neural foraminal stenosis. Right neural foraminal stenosis: L3-4 slight, L4-5 slight, L5-S1 slight to moderate Left neural foraminal stenosis: L3-4 slight, L4-5 moderate, L5-S1 moderate IMPRESSION: Heterogeneous vertebral bone marrow signal may be from mixture of red and yellow marrow Multilevel degenerative change, disc bulge, central canal stenosis, lateral recess stenosis, and neural foraminal stenosis
--- NOTE | 2017-09-14 19:26 | Progress Note ---
Assessment and Plan Assessment and plan: --Bilateral Lower extremity weakness; PT OT Follow MRI lumbosacral spine, neurology following --Metabolic encephalopathy; Probably secondary to UTI, supportive care --History of fall; fall precautions physical therapy occupational therapy --History of spine surgery; supportive care PT OT as needed --Sepsis secondary to urinary tract infection; Continue empiric antibiotics, follow cultures --Rhabdomyolysis; IV fluids and trend creatinine levels,Preserved renal function --Hypertension; moderate control Continue current antihypertensives and when necessary medications --Dyslipidemia; continue lipid lowering medicine and low cholesterol diet --History of BPH; resume Flomax --DVT prophylaxis with Lovenox We'll closely monitor the patient and adjust management as needed History Interval history: Patient seen and examined medical records Patient is scheduled for MRI today Complaints of bilateral lower extremity weakness Vital signs reviewed Hospitalist Physical - Constitutional Vitals: Temp Pulse Resp BP Pulse Ox 99.2 F 82 18 137/77 97 09/14/17 08:08 09/14/17 12:05 09/14/17 08:08 09/14/17 12:05 09/14/17 08:08 General appearance: Present: no acute distress, cachectic, disheveled - EENT Eyes: Present: PERRL, EOM intact - Neck Neck: Present: supple, normal ROM - Respiratory Respiratory effort: normal Respiratory: bilateral: diminished, negative: rales, rhonchi, wheezing - Cardiovascular Rhythm: regular Heart Sounds: Present: S1 & S2 - Extremities Extremities: no ischemia Extremity abnormal: edema - Abdominal General gastrointestinal: soft, non-tender, non-distended - Integumentary Integumentary: Present: clear, warm - Psychiatric Psychiatric: appropriate mood/affect, cooperative - Neurologic Neurologic: other (residual weakness) Results - Labs CBC & Chem 7: 09/13/17 08:02 09/13/17 08:02 Labs: Laboratory Last Values WBC 7.8 K/mm3 (4.5-11.0) 09/13/17 08:02 RBC 4.05 M/mm3 (3.65-5.03) 09/13/17 08:02 Hgb 13.0 gm/dl (11.8-15.2) 09/13/17 08:02 Hct 38.8 % (35.5-45.6) 09/13/17 08:02 MCV 96 fl (84-94) H 09/13/17 08:02 MCH 32 pg (28-32) 09/13/17 08:02 MCHC 34 % (32-34) 09/13/17 08:02 RDW 14.5 % (13.2-15.2) 09/13/17 08:02 Plt Count 53 K/mm3 (140-440) L 09/13/17 08:02 Lymph % (Auto) 12.2 % (13.4-35.0) L 09/13/17 08:02 [place] % (Auto) 8.6 % (0.0-7.3) H 09/13/17 08:02 Eos % (Auto) 0.1 % (0.0-4.3) 09/13/17 08:02 Baso % (Auto) 0.2 % (0.0-1.8) 09/13/17 08:02 Lymph # 1.0 K/mm3 (1.2-5.4) L 09/13/17 08:02 [place] # 0.7 K/mm3 (0.0-0.8) 09/13/17 08:02 Eos # 0.0 K/mm3 (0.0-0.4) 09/13/17 08:02 Baso # 0.0 K/mm3 (0.0-0.1) 09/13/17 08:02 Seg Neutrophils % 78.9 % (40.0-70.0) H 09/13/17 08:02 Seg Neutrophils # 6.2 K/mm3 (1.8-7.7) 09/13/17 08:02 ESR 62 mm/Hr (0-20) 09/13/17 14:34 APTT 35.1 Sec. (24.2-36.6) 09/11/17 18:47 Sodium 139 mmol/L (137-145) 09/13/17 08:02 Potassium 3.4 mmol/L (3.6-5.0) L 09/13/17 08:02 Chloride 105.2 mmol/L (98-107) 09/13/17 08:02 Carbon Dioxide 24 mmol/L (22-30) 09/13/17 08:02 Anion Gap 13 mmol/L 09/13/17 08:02 BUN 9 mg/dL (9-20) 09/13/17 08:02 Creatinine 0.4 mg/dL (0.8-1.5) L 09/13/17 08:02 Estimated GFR > 60 ml/min 09/13/17 08:02 BUN/Creatinine Ratio 23 % 09/13/17 08:02 Glucose 78 mg/dL (75-100) 09/13/17 08:02 POC Glucose 89 (70-105) 09/11/17 19:18 Lactic Acid 1.50 mmol/L (0.7-2.0) 09/11/17 19:59 Calcium 7.8 mg/dL (8.4-10.2) L 09/13/17 08:02 Magnesium 2.00 mg/dL (1.7-2.3) 09/11/17 19:35 Total Bilirubin 1.00 mg/dL (0.1-1.2) 09/11/17 18:47 AST 59 units/L (5-40) H 09/11/17 18:47 ALT 12 units/L (7-56) 09/11/17 18:47 Alkaline Phosphatase 68 units/L (35-129) 09/11/17 18:47 Total Creatine Kinase 2.62 units/L (55-170) L 09/13/17 08:02 Total Protein 8.4 g/dL (6.3-8.2) H 09/11/17 18:47 Albumin 3.0 g/dL (3.9-5) L 09/11/17 18:47 Albumin/Globulin Ratio 0.6 % 09/11/17 18:47 Vitamin B12 315.1 pg/mL (211-911) 09/13/17 14:34 TSH 3.940 mlU/mL (0.270-4.200) 09/13/17 14:34 Urine Color Ella (Yellow) 09/11/17 18:16 Urine Turbidity Clear (Clear) 09/11/17 18:16 Urine pH 6.0 (5.0-7.0) 09/11/17 18:16 Ur Specific [place] 1.021 (1.003-1.030) 09/11/17 18:16 Urine Protein 100 mg/dl mg/dL (Negative) 09/11/17 18:16 Urine Glucose (UA) Neg mg/dL (Negative) 09/11/17 18:16 Urine Ketones Neg mg/dL (Negative) 09/11/17 18:16 Urine Blood Lg (Negative) 09/11/17 18:16 Urine Nitrite Pos (Negative) 09/11/17 18:16 Urine Bilirubin Neg (Negative) 09/11/17 18:16 Urine Urobilinogen 4.0 mg/dL (<2.0) 09/11/17 18:16 Ur Leukocyte Esterase Lg (Negative) 09/11/17 18:16 Urine WBC (Auto) > 182.0 /HPF (0.0-6.0) H 09/11/17 18:16 Urine RBC (Auto) 4.0 /HPF (0.0-6.0) 09/11/17 18:16 U Epithel Cells (Auto) 2.0 /HPF (0-13.0) 09/11/17 18:16 Urine Bacteria (Auto) 4+ /HPF (Negative) 09/11/17 18:16 Urine WBC Clumps 3+ /HPF 09/11/17 18:16 Urine Mucus 3+ /HPF 09/11/17 18:16 Blood Type A POSITIVE 09/11/17 18:40 Antibody Screen Negative 09/11/17 18:40
[2017-09-14] MEDS: PRAVACHOL PO SCH (21:27)
[2017-09-15] MEDS: NACL 0.9% 1000 ML 1,000 ML IV SCH ×3 (01:44→20:47)
[2017-09-15] MEDS: LOVENOX SUB-Q SCH (11:39)
[2017-09-15] MEDS: NORVASC PO SCH (11:40)
[2017-09-15] MEDS: cefTRIAXone 1 GM in NACL 0.9% 20 ML IV SCH (11:40)
[2017-09-15] MEDS: FLOMAX PO SCH (11:41)
[2017-09-15] MEDS: K-DUR PO SCH (11:41)
[2017-09-15] MEDS: ZESTRIL PO SCH (11:41)
[2017-09-15] MEDS: SODIUM CHLORIDE FLUSH SYRINGE 10 ML IV SCH ×3 (11:56→21:35)
--- NOTE | 2017-09-15 19:08 | Progress Note ---
Assessment and Plan Assessment and plan: --Bilateral Lower extremity weakness; PT OT MRI lumbosacral spine ; Heterogeneous vertebral bone marrow signal may be from the share of red and yellow marrow, Multilevel degenerative spine disease, disc bulge, central canal stenosis, lateral recess stenosis, neural foraminal stenosis Patient has been having this progressive symptoms for the last 1 and 1 and half years[as documented by neurology] --Metabolic encephalopathy; Probably secondary to UTI, supportive care --History of fall; fall precautions physical therapy occupational therapy --History of spine surgery; supportive care PT OT as needed --Sepsis secondary to urinary tract infection; Escherichia coli Sensitive to Rocephin, continue current antibiotics --Rhabdomyolysis; IV fluids and trend creatinine levels,Preserved renal function --Hypertension; moderate control Continue current antihypertensives and when necessary medications --Dyslipidemia; continue lipid lowering medicine and low cholesterol diet --History of BPH; resume Flomax --DVT prophylaxis with Lovenox We'll closely monitor the patient and adjust management as needed History Interval history: Patient seen and examined medical records reviewed Clinically stable no new changes Vital signs noted Patient has no new complaints Hospitalist Physical - Constitutional Vitals: Temp Pulse Resp BP Pulse Ox 99.4 F 117 H 20 148/96 97 09/15/17 13:34 09/15/17 13:34 09/15/17 13:34 09/15/17 13:34 09/15/17 13:34 General appearance: Present: no acute distress, cachectic, disheveled - EENT Eyes: Present: PERRL, EOM intact - Neck Neck: Present: supple, normal ROM - Respiratory Respiratory effort: normal Respiratory: bilateral: diminished, negative: rales, rhonchi, wheezing - Cardiovascular Rhythm: regular Heart Sounds: Present: S1 & S2 - Extremities Extremities: No edema, abnormal (progressive weakness unable to move lower extremities) - Abdominal General gastrointestinal: soft, non-tender, non-distended, normal bowel sounds - Integumentary Integumentary: Present: clear, warm - Psychiatric Psychiatric: appropriate mood/affect, cooperative - Neurologic Neurologic: CNII-XII intact, moves all extremities Results - Labs CBC & Chem 7: 09/13/17 08:02 09/13/17 08:02 Labs: Laboratory Last Values WBC 7.8 K/mm3 (4.5-11.0) 09/13/17 08:02 RBC 4.05 M/mm3 (3.65-5.03) 09/13/17 08:02 Hgb 13.0 gm/dl (11.8-15.2) 09/13/17 08:02 Hct 38.8 % (35.5-45.6) 09/13/17 08:02 MCV 96 fl (84-94) H 09/13/17 08:02 MCH 32 pg (28-32) 09/13/17 08:02 MCHC 34 % (32-34) 09/13/17 08:02 RDW 14.5 % (13.2-15.2) 09/13/17 08:02 Plt Count 53 K/mm3 (140-440) L 09/13/17 08:02 Lymph % (Auto) 12.2 % (13.4-35.0) L 09/13/17 08:02 [place] % (Auto) 8.6 % (0.0-7.3) H 09/13/17 08:02 Eos % (Auto) 0.1 % (0.0-4.3) 09/13/17 08:02 Baso % (Auto) 0.2 % (0.0-1.8) 09/13/17 08:02 Lymph # 1.0 K/mm3 (1.2-5.4) L 09/13/17 08:02 [place] # 0.7 K/mm3 (0.0-0.8) 09/13/17 08:02 Eos # 0.0 K/mm3 (0.0-0.4) 09/13/17 08:02 Baso # 0.0 K/mm3 (0.0-0.1) 09/13/17 08:02 Seg Neutrophils % 78.9 % (40.0-70.0) H 09/13/17 08:02 Seg Neutrophils # 6.2 K/mm3 (1.8-7.7) 09/13/17 08:02 ESR 62 mm/Hr (0-20) 09/13/17 14:34 APTT 35.1 Sec. (24.2-36.6) 09/11/17 18:47 Sodium 139 mmol/L (137-145) 09/13/17 08:02 Potassium 3.4 mmol/L (3.6-5.0) L 09/13/17 08:02 Chloride 105.2 mmol/L (98-107) 09/13/17 08:02 Carbon Dioxide 24 mmol/L (22-30) 09/13/17 08:02 Anion Gap 13 mmol/L 09/13/17 08:02 BUN 9 mg/dL (9-20) 09/13/17 08:02 Creatinine 0.4 mg/dL (0.8-1.5) L 09/13/17 08:02 Estimated GFR > 60 ml/min 09/13/17 08:02 BUN/Creatinine Ratio 23 % 09/13/17 08:02 Glucose 78 mg/dL (75-100) 09/13/17 08:02 POC Glucose 89 (70-105) 09/11/17 19:18 Lactic Acid 1.50 mmol/L (0.7-2.0) 09/11/17 19:59 Calcium 7.8 mg/dL (8.4-10.2) L 09/13/17 08:02 Magnesium 2.00 mg/dL (1.7-2.3) 09/11/17 19:35 Total Bilirubin 1.00 mg/dL (0.1-1.2) 09/11/17 18:47 AST 59 units/L (5-40) H 09/11/17 18:47 ALT 12 units/L (7-56) 09/11/17 18:47 Alkaline Phosphatase 68 units/L (35-129) 09/11/17 18:47 Total Creatine Kinase 2.62 units/L (55-170) L 09/13/17 08:02 Total Protein 8.4 g/dL (6.3-8.2) H 09/11/17 18:47 Albumin 3.0 g/dL (3.9-5) L 09/11/17 18:47 Albumin/Globulin Ratio 0.6 % 09/11/17 18:47 Vitamin B12 315.1 pg/mL (211-911) 09/13/17 14:34 TSH 3.940 mlU/mL (0.270-4.200) 09/13/17 14:34 Urine Color Ella (Yellow) 09/11/17 18:16 Urine Turbidity Clear (Clear) 09/11/17 18:16 Urine pH 6.0 (5.0-7.0) 09/11/17 18:16 Ur Specific [place] 1.021 (1.003-1.030) 09/11/17 18:16 Urine Protein 100 mg/dl mg/dL (Negative) 09/11/17 18:16 Urine Glucose (UA) Neg mg/dL (Negative) 09/11/17 18:16 Urine Ketones Neg mg/dL (Negative) 09/11/17 18:16 Urine Blood Lg (Negative) 09/11/17 18:16 Urine Nitrite Pos (Negative) 09/11/17 18:16 Urine Bilirubin Neg (Negative) 09/11/17 18:16 Urine Urobilinogen 4.0 mg/dL (<2.0) 09/11/17 18:16 Ur Leukocyte Esterase Lg (Negative) 09/11/17 18:16 Urine WBC (Auto) > 182.0 /HPF (0.0-6.0) H 09/11/17 18:16 Urine RBC (Auto) 4.0 /HPF (0.0-6.0) 09/11/17 18:16 U Epithel Cells (Auto) 2.0 /HPF (0-13.0) 09/11/17 18:16 Urine Bacteria (Auto) 4+ /HPF (Negative) 09/11/17 18:16 Urine WBC Clumps 3+ /HPF 09/11/17 18:16 Urine Mucus 3+ /HPF 09/11/17 18:16 Blood Type A POSITIVE 09/11/17 18:40 Antibody Screen Negative 09/11/17 18:40
[2017-09-15] MEDS: TYLENOL PO PRN (20:07)
[2017-09-15] MEDS: PRAVACHOL PO SCH ×2 (20:48→21:34)
[2017-09-16] MEDS: NACL 0.9% 1000 ML 1,000 ML IV SCH ×3 (05:32→17:06)
[2017-09-16 06:20] LABS: Hematocrit 42.2 % (35.5-45.6); Hemoglobin 14.3 gm/dl (11.8-15.2); Mean Corpuscular HGB Conc 34 % (32-34); Mean Corpuscular Hemoglobin 33 pg (28-32); Mean Corpuscular Volume 97 fl (84-94); Red Blood Count 4.36 M/mm3 (3.65-5.03); Red Cell Distribution Width 14.4 % (13.2-15.2)
[2017-09-16 06:55] LABS: BUN/Creatinine Ratio 13; Blood Urea Nitrogen 5 mg/dL (9-20); Calcium 8.1 mg/dL (8.4-10.2); Hemolysis Index 49
[2017-09-16] MEDS: cefTRIAXone 1 GM in NACL 0.9% 20 ML IV SCH (09:50)
[2017-09-16] MEDS: ZESTRIL PO SCH (09:51)
[2017-09-16] MEDS: LOVENOX SUB-Q SCH (09:51)
[2017-09-16] MEDS: NORVASC PO SCH (09:51)
[2017-09-16] MEDS: FLOMAX PO SCH (09:51)
[2017-09-16] MEDS: K-DUR PO SCH (09:51)
[2017-09-16] MEDS: SODIUM CHLORIDE FLUSH SYRINGE 10 ML IV SCH ×2 (09:51→22:01)
[2017-09-16 10:12] LABS: Basophils % (Manual) 0 % (0.0-1.8); Platelet Estimate Appears Decreased; RBC Morphology Normal; Total Cells Counted 100
[2017-09-16 10:23] LABS: Platelet Count 77 K/mm3 (140-440)
--- NOTE | 2017-09-16 15:04 | Event Note ---
Date: 09/16/17 I reviewed lumbar spine MRI showing mild stenosis at L5-S1 centrally and some foraminal stenosis at several levels, not clear that this accounts for leg weakness, so I have ordered cervical and thoracic spine MRIs. If either shows significant spinal stenosis, he should be referred to neurosurgery as an outpatient. Signing off, call if any unusual MRI findings.
--- NOTE | 2017-09-16 15:35 | Progress Note ---
Assessment and Plan Assessment and plan: --Leukopenia/thrombocytopenia; due to underlying disease process Closely monitor --Bilateral Lower extremity weakness; PT OT Neurology recommended MRI C-spine and thoracic spine MRI lumbosacral spine ; Heterogeneous vertebral bone marrow signal may be from the share of red and yellow marrow, Multilevel degenerative spine disease, disc bulge, central canal stenosis, lateral recess stenosis, neural foraminal stenosis Patient has been having this progressive symptoms for the last 1 and 1 and half years[as documented by neurology] --Metabolic encephalopathy; Probably secondary to UTI, supportive care --History of fall; fall precautions physical therapy occupational therapy --History of spine surgery; supportive care PT OT as needed --Sepsis secondary to urinary tract infection; Escherichia coli Sensitive to Rocephin, --Rhabdomyolysis; continue gentle IV hydration Creatinine levels trending down in 200s --Hypertension; well controlled on current medications --Dyslipidemia; continue lipid lowering medicine and low cholesterol diet --History of BPH; resume Flomax --DVT prophylaxis with Lovenox We'll closely monitor the patient and adjust management as needed History Interval history: Patient seen and examined medical records reviewed No new events reported, Continues to have lower extremity weakness Receiving Physical therapy and occupational therapy Alert awake oriented 3,Vital signs reviewed . Hospitalist Physical - Constitutional Vitals: Temp Pulse Resp BP Pulse Ox 96.9 F L 78 20 134/73 98 09/16/17 08:17 09/16/17 08:17 09/16/17 10:00 09/16/17 08:17 09/16/17 08:17 General appearance: Present: no acute distress, cachectic, disheveled - EENT Eyes: Present: PERRL, EOM intact - Neck Neck: Present: supple, normal ROM - Respiratory Respiratory effort: normal Respiratory: bilateral: diminished, negative: rales, rhonchi, wheezing - Cardiovascular Rhythm: regular Heart Sounds: Present: S1 & S2 - Extremities Extremities: No edema - Abdominal General gastrointestinal: soft, non-tender, non-distended, normal bowel sounds - Integumentary Integumentary: Present: clear, warm - Psychiatric Psychiatric: appropriate mood/affect, cooperative - Neurologic Neurologic: other (lower extremity weakness) Results - Labs CBC & Chem 7: 09/16/17 05:31 09/16/17 05:31 Labs: Laboratory Last Values WBC 2.0 K/mm3 (4.5-11.0) L 09/16/17 05:31 RBC 4.36 M/mm3 (3.65-5.03) 09/16/17 05:31 Hgb 14.3 gm/dl (11.8-15.2) 09/16/17 05:31 Hct 42.2 % (35.5-45.6) 09/16/17 05:31 MCV 97 fl (84-94) H 09/16/17 05:31 MCH 33 pg (28-32) H 09/16/17 05:31 MCHC 34 % (32-34) 09/16/17 05:31 RDW 14.4 % (13.2-15.2) 09/16/17 05:31 Plt Count 77 K/mm3 (140-440) L 09/16/17 05:31 Lymph % (Auto) 12.2 % (13.4-35.0) L 09/13/17 08:02 [place] % (Auto) Information Technology Advisor 09/16/17 05:31 Eos % (Auto) 0.1 % (0.0-4.3) 09/13/17 08:02 Baso % (Auto) 0.2 % (0.0-1.8) 09/13/17 08:02 Lymph # 1.0 K/mm3 (1.2-5.4) L 09/13/17 08:02 [place] # 0.7 K/mm3 (0.0-0.8) 09/13/17 08:02 Eos # 0.0 K/mm3 (0.0-0.4) 09/13/17 08:02 Baso # 0.0 K/mm3 (0.0-0.1) 09/13/17 08:02 Add Manual Diff Complete 09/16/17 05:31 Total Counted 100 09/16/17 05:31 Seg Neutrophils % 78.9 % (40.0-70.0) H 09/13/17 08:02 Seg Neuts % (Manual) 54.0 % (40.0-70.0) 09/16/17 05:31 Band Neutrophils % 0 % 09/16/17 05:31 Lymphocytes % (Manual) 20.0 % (13.4-35.0) 09/16/17 05:31 Reactive Lymphs % (Man) 0 % 09/16/17 05:31 Monocytes % (Manual) 22.0 % (0.0-7.3) H 09/16/17 05:31 Eosinophils % (Manual) 2.0 % (0.0-4.3) 09/16/17 05:31 Basophils % (Manual) 0 % (0.0-1.8) 09/16/17 05:31 Metamyelocytes % 2.0 % 09/16/17 05:31 Myelocytes % 0 % 09/16/17 05:31 Promyelocytes % 0 % 09/16/17 05:31 Blast Cells % 0 % 09/16/17 05:31 Nucleated RBC % Not Reportable 09/16/17 05:31 Seg Neutrophils # 6.2 K/mm3 (1.8-7.7) 09/13/17 08:02 Seg Neutrophils # Man 1.1 K/mm3 (1.8-7.7) L 09/16/17 05:31 Band Neutrophils # 0.0 K/mm3 09/16/17 05:31 Lymphocytes # (Manual) 0.4 K/mm3 (1.2-5.4) L 09/16/17 05:31 Abs React Lymphs (Man) 0.0 K/mm3 09/16/17 05:31 Monocytes # (Manual) 0.4 K/mm3 (0.0-0.8) 09/16/17 05:31 Eosinophils # (Manual) 0.0 K/mm3 (0.0-0.4) 09/16/17 05:31 Basophils # (Manual) 0.0 K/mm3 (0.0-0.1) 09/16/17 05:31 Metamyelocytes # 0.0 K/mm3 09/16/17 05:31 Myelocytes # 0.0 K/mm3 09/16/17 05:31 Promyelocytes # 0.0 K/mm3 09/16/17 05:31 Blast Cells # 0.0 K/mm3 09/16/17 05:31 WBC Morphology Not Reportable 09/16/17 05:31 Hypersegmented Neuts Not Reportable 09/16/17 05:31 Hyposegmented Neuts Not Reportable 09/16/17 05:31 Hypogranular Neuts Not Reportable 09/16/17 05:31 Smudge Cells Not Reportable 09/16/17 05:31 Toxic Granulation Not Reportable 09/16/17 05:31 Toxic Vacuolation Not Reportable 09/16/17 05:31 Dohle Bodies Not Reportable 09/16/17 05:31 Pelger-Huet Anomaly Not Reportable 09/16/17 05:31 Anil Rods Not Reportable 09/16/17 05:31 Platelet Estimate Appears decreased 09/16/17 05:31 Clumped Platelets Not Reportable 09/16/17 05:31 Plt Clumps, EDTA Not Reportable 09/16/17 05:31 Large Platelets Not Reportable 09/16/17 05:31 Giant Platelets Not Reportable 09/16/17 05:31 Platelet Satelliting Not Reportable 09/16/17 05:31 Plt Morphology Comment Not Reportable 09/16/17 05:31 RBC Morphology Normal 09/16/17 05:31 Dimorphic RBCs Not Reportable 09/16/17 05:31 Polychromasia Not Reportable 09/16/17 05:31 Hypochromasia Not Reportable 09/16/17 05:31 Poikilocytosis Not Reportable 09/16/17 05:31 Anisocytosis Not Reportable 09/16/17 05:31 Microcytosis Not Reportable 09/16/17 05:31 Macrocytosis Not Reportable 09/16/17 05:31 Spherocytes Not Reportable 09/16/17 05:31 Pappenheimer Bodies Not Reportable 09/16/17 05:31 Sickle Cells Not Reportable 09/16/17 05:31 Target Cells Not Reportable 09/16/17 05:31 Tear Drop Cells Not Reportable 09/16/17 05:31 Ovalocytes Not Reportable 09/16/17 05:31 Helmet Cells Not Reportable 09/16/17 05:31 [place] Bodies Not Reportable 09/16/17 05:31 [place] Rings Not Reportable 09/16/17 05:31 [place] Cells Not Reportable 09/16/17 05:31 Bite Cells Not Reportable 09/16/17 05:31 Crenated Cell Not Reportable 09/16/17 05:31 Elliptocytes Not Reportable 09/16/17 05:31 Acanthocytes (Spur) Not Reportable 09/16/17 05:31 Rouleaux Not Reportable 09/16/17 05:31 Hemoglobin C Crystals Not Reportable 09/16/17 05:31 Schistocytes Not Reportable 09/16/17 05:31 Malaria parasites Not Reportable 09/16/17 05:31 ESR 62 mm/Hr (0-20) 09/13/17 14:34 Jonas Bodies Not Reportable 09/16/17 05:31 Hem Pathologist Commnt No 09/16/17 05:31 APTT 35.1 Sec. (24.2-36.6) 09/11/17 18:47 Sodium 136 mmol/L (137-145) L 09/16/17 05:31 Potassium 3.9 mmol/L (3.6-5.0) 09/16/17 05:31 Chloride 103.6 mmol/L (98-107) 09/16/17 05:31 Carbon Dioxide 21 mmol/L (22-30) L 09/16/17 05:31 Anion Gap 15 mmol/L 09/16/17 05:31 BUN 5 mg/dL (9-20) L 09/16/17 05:31 Creatinine 0.4 mg/dL (0.8-1.5) L 09/16/17 05:31 Estimated GFR > 60 ml/min 09/16/17 05:31 BUN/Creatinine Ratio 13 % 09/16/17 05:31 Glucose 86 mg/dL (75-100) 09/16/17 05:31 POC Glucose 89 (70-105) 09/11/17 19:18 Lactic Acid 1.50 mmol/L (0.7-2.0) 09/11/17 19:59 Calcium 8.1 mg/dL (8.4-10.2) L 09/16/17 05:31 Magnesium 2.00 mg/dL (1.7-2.3) 09/16/17 05:31 Total Bilirubin 1.00 mg/dL (0.1-1.2) 09/11/17 18:47 AST 59 units/L (5-40) H 09/11/17 18:47 ALT 12 units/L (7-56) 09/11/17 18:47 Alkaline Phosphatase 68 units/L (35-129) 09/11/17 18:47 Total Creatine Kinase 233 units/L (55-170) H 09/16/17 05:31 Total Protein 8.4 g/dL (6.3-8.2) H 09/11/17 18:47 Albumin 3.0 g/dL (3.9-5) L 09/11/17 18:47 Albumin/Globulin Ratio 0.6 % 09/11/17 18:47 Vitamin B12 315.1 pg/mL (211-911) 09/13/17 14:34 TSH 3.940 mlU/mL (0.270-4.200) 09/13/17 14:34 Urine Color Ella (Yellow) 09/11/17 18:16 Urine Turbidity Clear (Clear) 09/11/17 18:16 Urine pH 6.0 (5.0-7.0) 09/11/17 18:16 Ur Specific [place] 1.021 (1.003-1.030) 09/11/17 18:16 Urine Protein 100 mg/dl mg/dL (Negative) 09/11/17 18:16 Urine Glucose (UA) Neg mg/dL (Negative) 09/11/17 18:16 Urine Ketones Neg mg/dL (Negative) 09/11/17 18:16 Urine Blood Lg (Negative) 09/11/17 18:16 Urine Nitrite Pos (Negative) 09/11/17 18:16 Urine Bilirubin Neg (Negative) 09/11/17 18:16 Urine Urobilinogen 4.0 mg/dL (<2.0) 09/11/17 18:16 Ur Leukocyte Esterase Lg (Negative) 09/11/17 18:16 Urine WBC (Auto) > 182.0 /HPF (0.0-6.0) H 09/11/17 18:16 Urine RBC (Auto) 4.0 /HPF (0.0-6.0) 09/11/17 18:16 U Epithel Cells (Auto) 2.0 /HPF (0-13.0) 09/11/17 18:16 Urine Bacteria (Auto) 4+ /HPF (Negative) 09/11/17 18:16 Urine WBC Clumps 3+ /HPF 09/11/17 18:16 Urine Mucus 3+ /HPF 09/11/17 18:16 Blood Type A POSITIVE 09/11/17 18:40 Antibody Screen Negative 09/11/17 18:40
[2017-09-16] MEDS: TYLENOL PO PRN (21:58)
[2017-09-16] MEDS: PRAVACHOL PO SCH (21:58)
[2017-09-17] MEDS: NACL 0.9% 1000 ML 1,000 ML IV SCH ×2 (03:10→23:43)
[2017-09-17] MEDS: NORVASC PO SCH (09:33)
[2017-09-17] MEDS: K-DUR PO SCH (09:33)
[2017-09-17] MEDS: FLOMAX PO SCH (09:33)
[2017-09-17] MEDS: ZESTRIL PO SCH (09:33)
[2017-09-17] MEDS: SODIUM CHLORIDE FLUSH SYRINGE 10 ML IV SCH ×2 (09:35→23:42)
[2017-09-17] MEDS: cefTRIAXone 1 GM in NACL 0.9% 20 ML IV SCH (09:35)
--- NOTE | 2017-09-17 14:00 | Progress Note ---
Assessment and Plan Assessment and plan: --Leukopenia/thrombocytopenia; due to underlying disease process Follow labs tomorrow, supportive care --Bilateral Lower extremity weakness; PT OT Neurology recommended MRI C-spine and thoracic spine MRI lumbosacral spine ; Heterogeneous vertebral bone marrow signal may be from the share of red and yellow marrow, Multilevel degenerative spine disease, disc bulge, central canal stenosis, lateral recess stenosis, neural foraminal stenosis Patient has been having this progressive symptoms for the last 1 and 1 and half years[as documented by neurology] --Metabolic encephalopathy; Probably secondary to UTI, supportive care --History of fall; fall precautions physical therapy occupational therapy --History of spine surgery; supportive care PT OT as needed --Sepsis secondary to urinary tract infection; Escherichia coli Sensitive to Rocephin, --Rhabdomyolysis; continue gentle IV hydration Creatinine levels trending down in 200s --Hypertension; well controlled on current medications --Dyslipidemia; continue lipid lowering medicine and low cholesterol diet --History of BPH; resume Flomax --DVT prophylaxis with Lovenox We'll closely monitor the patient and adjust management as needed History Interval history: Patient seen and examined medical records reviewed Tolerated physical therapy walked the hallway with the help of walker and belt held by physical therapy No new events reported by the nursing No new complaints Vital signs reviewed Hospitalist Physical - Constitutional Vitals: Temp Pulse Resp BP Pulse Ox 98.8 F 74 16 136/76 100 09/17/17 08:11 09/17/17 08:11 09/17/17 08:11 09/17/17 09:33 09/17/17 08:11 General appearance: Present: no acute distress, cachectic, disheveled - EENT Eyes: Present: PERRL, EOM intact - Neck Neck: Present: supple, normal ROM - Respiratory Respiratory effort: normal Respiratory: bilateral: diminished, negative: rales, rhonchi, wheezing - Cardiovascular Rhythm: regular Heart Sounds: Present: S1 & S2 - Extremities Extremities: no ischemia, pulses intact - Abdominal General gastrointestinal: soft, non-tender, non-distended, normal bowel sounds - Integumentary Integumentary: Present: clear, warm - Psychiatric Psychiatric: appropriate mood/affect, cooperative - Neurologic Neurologic: moves all extremities (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, minimal weakness on the right side) Results - Labs CBC & Chem 7: 09/16/17 05:31 09/16/17 05:31 Labs: Laboratory Last Values WBC 2.0 K/mm3 (4.5-11.0) L 09/16/17 05:31 RBC 4.36 M/mm3 (3.65-5.03) 09/16/17 05:31 Hgb 14.3 gm/dl (11.8-15.2) 09/16/17 05:31 Hct 42.2 % (35.5-45.6) 09/16/17 05:31 MCV 97 fl (84-94) H 09/16/17 05:31 MCH 33 pg (28-32) H 09/16/17 05:31 MCHC 34 % (32-34) 09/16/17 05:31 RDW 14.4 % (13.2-15.2) 09/16/17 05:31 Plt Count 77 K/mm3 (140-440) L 09/16/17 05:31 Lymph % (Auto) 12.2 % (13.4-35.0) L 09/13/17 08:02 [place] % (Auto) Oyster Worker 09/16/17 05:31 Eos % (Auto) 0.1 % (0.0-4.3) 09/13/17 08:02 Baso % (Auto) 0.2 % (0.0-1.8) 09/13/17 08:02 Lymph # 1.0 K/mm3 (1.2-5.4) L 09/13/17 08:02 [place] # 0.7 K/mm3 (0.0-0.8) 09/13/17 08:02 Eos # 0.0 K/mm3 (0.0-0.4) 09/13/17 08:02 Baso # 0.0 K/mm3 (0.0-0.1) 09/13/17 08:02 Add Manual Diff Complete 09/16/17 05:31 Total Counted 100 09/16/17 05:31 Seg Neutrophils % 78.9 % (40.0-70.0) H 09/13/17 08:02 Seg Neuts % (Manual) 54.0 % (40.0-70.0) 09/16/17 05:31 Band Neutrophils % 0 % 09/16/17 05:31 Lymphocytes % (Manual) 20.0 % (13.4-35.0) 09/16/17 05:31 Reactive Lymphs % (Man) 0 % 09/16/17 05:31 Monocytes % (Manual) 22.0 % (0.0-7.3) H 09/16/17 05:31 Eosinophils % (Manual) 2.0 % (0.0-4.3) 09/16/17 05:31 Basophils % (Manual) 0 % (0.0-1.8) 09/16/17 05:31 Metamyelocytes % 2.0 % 09/16/17 05:31 Myelocytes % 0 % 09/16/17 05:31 Promyelocytes % 0 % 09/16/17 05:31 Blast Cells % 0 % 09/16/17 05:31 Nucleated RBC % Not Reportable 09/16/17 05:31 Seg Neutrophils # 6.2 K/mm3 (1.8-7.7) 09/13/17 08:02 Seg Neutrophils # Man 1.1 K/mm3 (1.8-7.7) L 09/16/17 05:31 Band Neutrophils # 0.0 K/mm3 09/16/17 05:31 Lymphocytes # (Manual) 0.4 K/mm3 (1.2-5.4) L 09/16/17 05:31 Abs React Lymphs (Man) 0.0 K/mm3 09/16/17 05:31 Monocytes # (Manual) 0.4 K/mm3 (0.0-0.8) 09/16/17 05:31 Eosinophils # (Manual) 0.0 K/mm3 (0.0-0.4) 09/16/17 05:31 Basophils # (Manual) 0.0 K/mm3 (0.0-0.1) 09/16/17 05:31 Metamyelocytes # 0.0 K/mm3 09/16/17 05:31 Myelocytes # 0.0 K/mm3 09/16/17 05:31 Promyelocytes # 0.0 K/mm3 09/16/17 05:31 Blast Cells # 0.0 K/mm3 09/16/17 05:31 WBC Morphology Not Reportable 09/16/17 05:31 Hypersegmented Neuts Not Reportable 09/16/17 05:31 Hyposegmented Neuts Not Reportable 09/16/17 05:31 Hypogranular Neuts Not Reportable 09/16/17 05:31 Smudge Cells Not Reportable 09/16/17 05:31 Toxic Granulation Not Reportable 09/16/17 05:31 Toxic Vacuolation Not Reportable 09/16/17 05:31 Dohle Bodies Not Reportable 09/16/17 05:31 Pelger-Huet Anomaly Not Reportable 09/16/17 05:31 Anil Rods Not Reportable 09/16/17 05:31 Platelet Estimate Appears decreased 09/16/17 05:31 Clumped Platelets Not Reportable 09/16/17 05:31 Plt Clumps, EDTA Not Reportable 09/16/17 05:31 Large Platelets Not Reportable 09/16/17 05:31 Giant Platelets Not Reportable 09/16/17 05:31 Platelet Satelliting Not Reportable 09/16/17 05:31 Plt Morphology Comment Not Reportable 09/16/17 05:31 RBC Morphology Normal 09/16/17 05:31 Dimorphic RBCs Not Reportable 09/16/17 05:31 Polychromasia Not Reportable 09/16/17 05:31 Hypochromasia Not Reportable 09/16/17 05:31 Poikilocytosis Not Reportable 09/16/17 05:31 Anisocytosis Not Reportable 09/16/17 05:31 Microcytosis Not Reportable 09/16/17 05:31 Macrocytosis Not Reportable 09/16/17 05:31 Spherocytes Not Reportable 09/16/17 05:31 Pappenheimer Bodies Not Reportable 09/16/17 05:31 Sickle Cells Not Reportable 09/16/17 05:31 Target Cells Not Reportable 09/16/17 05:31 Tear Drop Cells Not Reportable 09/16/17 05:31 Ovalocytes Not Reportable 09/16/17 05:31 Helmet Cells Not Reportable 09/16/17 05:31 [place] Bodies Not Reportable 09/16/17 05:31 [place] Rings Not Reportable 09/16/17 05:31 [place] Cells Not Reportable 09/16/17 05:31 Bite Cells Not Reportable 09/16/17 05:31 Crenated Cell Not Reportable 09/16/17 05:31 Elliptocytes Not Reportable 09/16/17 05:31 Acanthocytes (Spur) Not Reportable 09/16/17 05:31 Rouleaux Not Reportable 09/16/17 05:31 Hemoglobin C Crystals Not Reportable 09/16/17 05:31 Schistocytes Not Reportable 09/16/17 05:31 Malaria parasites Not Reportable 09/16/17 05:31 ESR 62 mm/Hr (0-20) 09/13/17 14:34 Jonas Bodies Not Reportable 09/16/17 05:31 Hem Pathologist Commnt No 09/16/17 05:31 APTT 35.1 Sec. (24.2-36.6) 09/11/17 18:47 Sodium 136 mmol/L (137-145) L 09/16/17 05:31 Potassium 3.9 mmol/L (3.6-5.0) 09/16/17 05:31 Chloride 103.6 mmol/L (98-107) 09/16/17 05:31 Carbon Dioxide 21 mmol/L (22-30) L 09/16/17 05:31 Anion Gap 15 mmol/L 09/16/17 05:31 BUN 5 mg/dL (9-20) L 09/16/17 05:31 Creatinine 0.4 mg/dL (0.8-1.5) L 09/16/17 05:31 Estimated GFR > 60 ml/min 09/16/17 05:31 BUN/Creatinine Ratio 13 % 09/16/17 05:31 Glucose 86 mg/dL (75-100) 09/16/17 05:31 POC Glucose 89 (70-105) 09/11/17 19:18 Lactic Acid 1.50 mmol/L (0.7-2.0) 09/11/17 19:59 Calcium 8.1 mg/dL (8.4-10.2) L 09/16/17 05:31 Magnesium 2.00 mg/dL (1.7-2.3) 09/16/17 05:31 Total Bilirubin 1.00 mg/dL (0.1-1.2) 09/11/17 18:47 AST 59 units/L (5-40) H 09/11/17 18:47 ALT 12 units/L (7-56) 09/11/17 18:47 Alkaline Phosphatase 68 units/L (35-129) 09/11/17 18:47 Total Creatine Kinase 233 units/L (55-170) H 09/16/17 05:31 Total Protein 8.4 g/dL (6.3-8.2) H 09/11/17 18:47 Albumin 3.0 g/dL (3.9-5) L 09/11/17 18:47 Albumin/Globulin Ratio 0.6 % 09/11/17 18:47 Vitamin B12 315.1 pg/mL (211-911) 09/13/17 14:34 TSH 3.940 mlU/mL (0.270-4.200) 09/13/17 14:34 Urine Color Ella (Yellow) 09/11/17 18:16 Urine Turbidity Clear (Clear) 09/11/17 18:16 Urine pH 6.0 (5.0-7.0) 09/11/17 18:16 Ur Specific [place] 1.021 (1.003-1.030) 09/11/17 18:16 Urine Protein 100 mg/dl mg/dL (Negative) 09/11/17 18:16 Urine Glucose (UA) Neg mg/dL (Negative) 09/11/17 18:16 Urine Ketones Neg mg/dL (Negative) 09/11/17 18:16 Urine Blood Lg (Negative) 09/11/17 18:16 Urine Nitrite Pos (Negative) 09/11/17 18:16 Urine Bilirubin Neg (Negative) 09/11/17 18:16 Urine Urobilinogen 4.0 mg/dL (<2.0) 09/11/17 18:16 Ur Leukocyte Esterase Lg (Negative) 09/11/17 18:16 Urine WBC (Auto) > 182.0 /HPF (0.0-6.0) H 09/11/17 18:16 Urine RBC (Auto) 4.0 /HPF (0.0-6.0) 18 18:16 U Epithel Cells (Auto) 2.0 /HPF (0-13.0) 09/11/17 18:16 Urine Bacteria (Auto) 4+ /HPF (Negative) 09/11/17 18:16 Urine WBC Clumps 3+ /HPF 09/11/17 18:16 Urine Mucus 3+ /HPF 09/11/17 18:16 Blood Type A POSITIVE 09/11/17 18:40 Antibody Screen Negative 09/11/17 18:40
[2017-09-17] MEDS: PRAVACHOL PO SCH (23:42)
[2017-09-18 06:18] LABS: Mean Corpuscular HGB Conc 33 % (32-34); Mean Corpuscular Hemoglobin 33 pg (28-32); Mean Corpuscular Volume 98 fl (84-94); Platelet Count 113 K/mm3 (140-440); Red Blood Count 4.28 M/mm3 (3.65-5.03); Red Cell Distribution Width 14.4 % (13.2-15.2)
[2017-09-18 06:42] LABS: BUN/Creatinine Ratio 20; Blood Urea Nitrogen 8 mg/dL (9-20); Calcium 8.7 mg/dL (8.4-10.2); Hemolysis Index 17
--- NOTE | 2017-09-18 08:39 | Progress Note ---
Assessment and Plan Assessment and plan: --Sepsis secondary to urinary tract infection; Escherichia coli Received 5 days of IV Rocephin, changed to doxycycline 100 mg twice a day --Leukopenia/thrombocytopenia; due to underlying sepsis due to UTI Improving, closely monitor -- Bilateral Lower extremity weakness; PT OT As been having these symptoms for the last one to one and half years Need to see outpatient neurosurgeon for further evaluation and recommendations Neurology recommended MRI C-spine and thoracic spine, and other studies MRI lumbosacral spine ; Heterogeneous vertebral bone marrow signal may be from the share of red and yellow marrow, Multilevel degenerative spine disease, disc bulge, central canal stenosis, lateral recess stenosis, neural foraminal stenosis Patient has been having this progressive symptoms for the last 1 and 1 and half years[as documented by neurology] --Metabolic encephalopathy; Probably secondary to UTI, supportive care --History of fall; fall precautions physical therapy occupational therapy --History of spine surgery; supportive care PT OT as needed --Rhabdomyolysis; continue gentle IV hydration Creatinine levels trending down in 200s --Hypertension; well controlled on current medications --Dyslipidemia; continue lipid lowering medicine and low cholesterol diet --History of BPH; resume Flomax --DVT prophylaxis with Lovenox We'll closely monitor the patient and adjust management as needed Hospitalist Physical - Constitutional Vitals: Temp Pulse Resp BP Pulse Ox 98.8 F 77 18 157/76 100 09/18/17 02:50 09/18/17 02:50 09/18/17 02:50 09/18/17 02:50 09/18/17 02:50 General appearance: Present: no acute distress, cachectic, disheveled Results - Labs CBC & Chem 7: 09/18/17 05:29 09/18/17 05:29 Labs: Laboratory Last Values WBC 2.4 K/mm3 (4.5-11.0) L 09/18/17 05:29 RBC 4.28 M/mm3 (3.65-5.03) 09/18/17 05:29 Hgb 14.0 gm/dl (11.8-15.2) 09/18/17 05:29 Hct 42.0 % (35.5-45.6) 09/18/17 05:29 MCV 98 fl (84-94) H 09/18/17 05:29 MCH 33 pg (28-32) H 09/18/17 05:29 MCHC 33 % (32-34) 09/18/17 05:29 RDW 14.4 % (13.2-15.2) 09/18/17 05:29 Plt Count 113 K/mm3 (140-440) L 09/18/17 05:29 Lymph % (Auto) 12.2 % (13.4-35.0) L 09/13/17 08:02 Lassen % (Auto) Scientific Software Engineer 09/18/17 05:29 Eos % (Auto) 0.1 % (0.0-4.3) 09/13/17 08:02 Baso % (Auto) 0.2 % (0.0-1.8) 09/13/17 08:02 Lymph # 1.0 K/mm3 (1.2-5.4) L 09/13/17 08:02 Lassen # 0.7 K/mm3 (0.0-0.8) 09/13/17 08:02 Eos # 0.0 K/mm3 (0.0-0.4) 09/13/17 08:02 Baso # 0.0 K/mm3 (0.0-0.1) 09/13/17 08:02 Add Manual Diff Complete 09/16/17 05:31 Total Counted 100 09/16/17 05:31 Seg Neutrophils % Scientific Software Engineer 09/18/17 05:29 Seg Neuts % (Manual) 54.0 % (40.0-70.0) 09/16/17 05:31 Band Neutrophils % 0 % 09/16/17 05:31 Lymphocytes % (Manual) 20.0 % (13.4-35.0) 09/16/17 05:31 Reactive Lymphs % (Man) 0 % 09/16/17 05:31 Monocytes % (Manual) 22.0 % (0.0-7.3) H 09/16/17 05:31 Eosinophils % (Manual) 2.0 % (0.0-4.3) 09/16/17 05:31 Basophils % (Manual) 0 % (0.0-1.8) 09/16/17 05:31 Metamyelocytes % 2.0 % 09/16/17 05:31 Myelocytes % 0 % 09/16/17 05:31 Promyelocytes % 0 % 09/16/17 05:31 Blast Cells % 0 % 09/16/17 05:31 Nucleated RBC % Not Reportable 09/16/17 05:31 Seg Neutrophils # 6.2 K/mm3 (1.8-7.7) 09/13/17 08:02 Seg Neutrophils # Man 1.1 K/mm3 (1.8-7.7) L 09/16/17 05:31 Band Neutrophils # 0.0 K/mm3 09/16/17 05:31 Lymphocytes # (Manual) 0.4 K/mm3 (1.2-5.4) L 09/16/17 05:31 Abs React Lymphs (Man) 0.0 K/mm3 09/16/17 05:31 Monocytes # (Manual) 0.4 K/mm3 (0.0-0.8) 09/16/17 05:31 Eosinophils # (Manual) 0.0 K/mm3 (0.0-0.4) 09/16/17 05:31 Basophils # (Manual) 0.0 K/mm3 (0.0-0.1) 09/16/17 05:31 Metamyelocytes # 0.0 K/mm3 09/16/17 05:31 Myelocytes # 0.0 K/mm3 09/16/17 05:31 Promyelocytes # 0.0 K/mm3 09/16/17 05:31 Blast Cells # 0.0 K/mm3 09/16/17 05:31 WBC Morphology Not Reportable 09/16/17 05:31 Hypersegmented Neuts Not Reportable 09/16/17 05:31 Hyposegmented Neuts Not Reportable 09/16/17 05:31 Hypogranular Neuts Not Reportable 09/16/17 05:31 Smudge Cells Not Reportable 09/16/17 05:31 Toxic Granulation Not Reportable 09/16/17 05:31 Toxic Vacuolation Not Reportable 09/16/17 05:31 Dohle Bodies Not Reportable 09/16/17 05:31 Pelger-Huet Anomaly Not Reportable 09/16/17 05:31 Anil Rods Not Reportable 09/16/17 05:31 Platelet Estimate Appears decreased 09/16/17 05:31 Clumped Platelets Not Reportable 09/16/17 05:31 Plt Clumps, EDTA Not Reportable 09/16/17 05:31 Large Platelets Not Reportable 09/16/17 05:31 Giant Platelets Not Reportable 09/16/17 05:31 Platelet Satelliting Not Reportable 09/16/17 05:31 Plt Morphology Comment Not Reportable 09/16/17 05:31 RBC Morphology Normal 09/16/17 05:31 Dimorphic RBCs Not Reportable 09/16/17 05:31 Polychromasia Not Reportable 09/16/17 05:31 Hypochromasia Not Reportable 09/16/17 05:31 Poikilocytosis Not Reportable 09/16/17 05:31 Anisocytosis Not Reportable 09/16/17 05:31 Microcytosis Not Reportable 09/16/17 05:31 Macrocytosis Not Reportable 09/16/17 05:31 Spherocytes Not Reportable 09/16/17 05:31 Pappenheimer Bodies Not Reportable 09/16/17 05:31 Sickle Cells Not Reportable 09/16/17 05:31 Target Cells Not Reportable 09/16/17 05:31 Tear Drop Cells Not Reportable 09/16/17 05:31 Ovalocytes Not Reportable 09/16/17 05:31 Helmet Cells Not Reportable 09/16/17 05:31 [place] Bodies Not Reportable 09/16/17 05:31 [place] Rings Not Reportable 09/16/17 05:31 Barbara Cells Not Reportable 09/16/17 05:31 Bite Cells Not Reportable 09/16/17 05:31 Crenated Cell Not Reportable 09/16/17 05:31 Elliptocytes Not Reportable 09/16/17 05:31 Acanthocytes (Spur) Not Reportable 09/16/17 05:31 Rouleaux Not Reportable 09/16/17 05:31 Hemoglobin C Crystals Not Reportable 09/16/17 05:31 Schistocytes Not Reportable 09/16/17 05:31 Malaria parasites Not Reportable 09/16/17 05:31 ESR 62 mm/Hr (0-20) 09/13/17 14:34 Jonas Bodies Not Reportable 09/16/17 05:31 Hem Pathologist Commnt No 09/16/17 05:31 APTT 35.1 Sec. (24.2-36.6) 09/11/17 18:47 Sodium 140 mmol/L (137-145) 09/18/17 05:29 Potassium 3.9 mmol/L (3.6-5.0) 09/18/17 05:29 Chloride 103.6 mmol/L (98-107) 09/18/17 05:29 Carbon Dioxide 24 mmol/L (22-30) 09/18/17 05:29 Anion Gap 16 mmol/L 09/18/17 05:29 BUN 8 mg/dL (9-20) L 09/18/17 05:29 Creatinine 0.4 mg/dL (0.8-1.5) L 09/18/17 05:29 Estimated GFR > 60 ml/min 09/18/17 05:29 BUN/Creatinine Ratio 20 % 09/18/17 05:29 Glucose 81 mg/dL (75-100) 09/18/17 05:29 POC Glucose 89 (70-105) 09/11/17 19:18 Lactic Acid 1.50 mmol/L (0.7-2.0) 09/11/17 19:59 Calcium 8.7 mg/dL (8.4-10.2) 09/18/17 05:29 Magnesium 2.00 mg/dL (1.7-2.3) 09/16/17 05:31 Total Bilirubin 1.00 mg/dL (0.1-1.2) 09/11/17 18:47 AST 59 units/L (5-40) H 09/11/17 18:47 ALT 12 units/L (7-56) 09/11/17 18:47 Alkaline Phosphatase 68 units/L (35-129) 09/11/17 18:47 Total Creatine Kinase 233 units/L (55-170) H 09/16/17 05:31 Total Protein 8.4 g/dL (6.3-8.2) H 09/11/17 18:47 Albumin 3.0 g/dL (3.9-5) L 09/11/17 18:47 Albumin/Globulin Ratio 0.6 % 09/11/17 18:47 Vitamin B12 315.1 pg/mL (211-911) 09/13/17 14:34 TSH 3.940 mlU/mL (0.270-4.200) 09/13/17 14:34 Urine Color Ella (Yellow) 09/11/17 18:16 Urine Turbidity Clear (Clear) 09/11/17 18:16 Urine pH 6.0 (5.0-7.0) 09/11/17 18:16 Ur Specific Roy 1.021 (1.003-1.030) 09/11/17 18:16 Urine Protein 100 mg/dl mg/dL (Negative) 09/11/17 18:16 Urine Glucose (UA) Neg mg/dL (Negative) 09/11/17 18:16 Urine Ketones Neg mg/dL (Negative) 09/11/17 18:16 Urine Blood Lg (Negative) 09/11/17 18:16 Urine Nitrite Pos (Negative) 09/11/17 18:16 Urine Bilirubin Neg (Negative) 09/11/17 18:16 Urine Urobilinogen 4.0 mg/dL (<2.0) 09/11/17 18:16 Ur Leukocyte Esterase Lg (Negative) 09/11/17 18:16 Urine WBC (Auto) > 182.0 /HPF (0.0-6.0) H 09/11/17 18:16 Urine RBC (Auto) 4.0 /HPF (0.0-6.0) 09/11/17 18:16 U Epithel Cells (Auto) 2.0 /HPF (0-13.0) 09/11/17 18:16 Urine Bacteria (Auto) 4+ /HPF (Negative) 09/11/17 18:16 Urine WBC Clumps 3+ /HPF 09/11/17 18:16 Urine Mucus 3+ /HPF 09/11/17 18:16 Blood Type A POSITIVE 09/11/17 18:40 Antibody Screen Negative 09/11/17 18:40
[2017-09-18] MEDS: NORVASC PO SCH (09:09)
[2017-09-18] MEDS: FLOMAX PO SCH (09:09)
[2017-09-18] MEDS: K-DUR PO SCH (09:09)
[2017-09-18] MEDS: ZESTRIL PO SCH (09:10)
[2017-09-18 09:12] VITALS: BP 112/62
[2017-09-18] MEDS: SODIUM CHLORIDE FLUSH SYRINGE 10 ML IV SCH (09:19)
[2017-09-18] MEDS ORDERED: ATIVAN IV ONE (09:21)
[2017-09-18 09:45] LABS: Platelet Estimate Cons; RBC Morphology Normal; Total Cells Counted 100
[2017-09-18] MEDS ORDERED: VIBRAMYCIN PO SCH (10:00)
[2017-09-18] MEDS: LOVENOX SUB-Q SCH (10:17)
--- NOTE | 2017-09-18 15:58 | Discharge Summary ---
Providers - Providers Date of Admission: 09/11/17 22:31 Date of discharge: 09/18/17 Attending physician: THI MONZON 09/12/17 08:30 Physical Therapy Evaluation and Treat [CONS] Routine Comment: Reason For Exam: new onset of weakness 09/12/17 13:41 Occupational Therapy Evaluate and Treat [CONS] Routine Comment: Reason For Exam: confusion, generalized weakness 09/12/17 19:20 Consult to Wound/ET Nurse [CONS] Routine Reason For Exam: wound eval, specifically BLE and feet 09/13/17 11:22 Consult to Physician [CONS] Routine Comment: left mess. to [id number] Consulting Provider: DORINA ESQUIVEL Physician Instructions: . Reason For Exam: lower extremity weakness Primary care physician: CUSTOMER SERVICE ADMINISTRATOR Hospitalization Condition: Fair Hospital course: --Leukopenia/thrombocytopenia; due to underlying disease process Follow labs tomorrow, supportive care --Bilateral Lower extremity weakness; PT OT Neurology recommended MRI C-spine and thoracic spine[patient refused] MRI lumbosacral spine ; Heterogeneous vertebral bone marrow signal may be from the share of red and yellow marrow, Multilevel degenerative spine disease, disc bulge, central canal stenosis, lateral recess stenosis, neural foraminal stenosis Patient has been having this progressive symptoms for the last 1 and 11/2 years[ as documented by neurology] --Metabolic encephalopathy; Probably secondary to UTI, supportive care --History of fall; fall precautions physical therapy occupational therapy --History of spine surgery; supportive care PT OT as needed --Sepsis secondary to urinary tract infection; Escherichia coli Sensitive to Rocephin, --Rhabdomyolysis; continue gentle IV hydration Creatinine levels trending down in 200s --Hypertension; well controlled on current medications --Dyslipidemia; continue lipid lowering medicine and low cholesterol diet --History of BPH; resume Flomax --DVT prophylaxis with Lovenox We'll closely monitor the patient and adjust management as needed Disposition: DC/[place]-06 HOME UNDER [facility] Time spent for discharge: 33 min Core Measure Documentation - Palliative Care Palliative Care/ Comfort Measures: Not Applicable - Core Measures Any of the following diagnoses?: none Exam - Constitutional Vitals: Temp Pulse Resp BP Pulse Ox 99 F 96 H 18 112/62 100 09/18/17 08:00 09/18/17 10:00 09/18/17 10:00 09/18/17 09:10 09/18/17 02:50 General appearance: Present: no acute distress, well-nourished - EENT Eyes: Present: PERRL, EOM intact - Neck Neck: Present: supple, normal ROM - Respiratory Respiratory effort: normal Respiratory: bilateral: diminished, negative: rales, rhonchi, wheezing - Cardiovascular Rhythm: regular Heart Sounds: Present: S1 & S2 - Extremities Extremities: no ischemia, No edema - Abdominal General gastrointestinal: Present: soft, non-tender, non-distended, normal bowel sounds - Integumentary Integumentary: Present: clear, warm - Musculoskeletal Musculoskeletal: strength equal bilaterally - Psychiatric Psychiatric: appropriate mood/affect, cooperative - Neurologic Neurologic: CNII-XII intact, moves all extremities Plan Activity: advance as tolerated, fall precautions Diet: low cholesterol, low salt Special Instructions: physical therapy, occupational therapy Additional Instructions: Advised to follow his private neurology and private neurosurgery for further evaluation and management. Patient refused MRI C-spine , T-spine, advised to check primary care physician. For the above imaging studies as outpatient Follow up with: PRIMARY CARE, [Primary Care Provider] - 3-5 Days LIZ PACKER MD [Staff Physician] - 7 Days ZULMA MOFFETT MD [Referring] - 7 Days Prescriptions: Doxycycline [Vibramycin CAP] 100 mg PO BID #20 capsule
== END 2017-09-18 17:36 | disposition home health service (06) | DRG 871 ==
LOC: ED 16:38 → 2B-ACE 22:31
PROVIDERS: ADMIT Internal Medicine; ATTEND Internal Medicine
DX: A41.51 Sepsis due to Escherichia coli [E. coli] (principal); G93.41 Metabolic encephalopathy; N39.0 Urinary tract infection, site not specified; M62.82 Rhabdomyolysis; I10 Essential (primary) hypertension; E78.5 Hyperlipidemia, unspecified; D69.6 Thrombocytopenia, unspecified; N40.0 Benign prostatic hyperplasia without lower urinary tract symptoms; M19.90 Unspecified osteoarthritis, unspecified site; Z87.891 Personal history of nicotine dependence; Z91.018 Allergy to other foods; Z91.81 History of falling
CPT/HCPCS: 36415; 70450; 71045; 72125; 72148; 80048; 80053; 81001; 82140; 82550; 82607; 82962; 83735; 84443; 85007; 85025; 85652; 85730; 86850; 86900; 86901; 87040; 87076; 87086; 87186; 93005; 93010; 96374; 96375; 99406; A9270-GY; G8978-GP; G8979-GP; G8987-GO; G8988-GO; J0696; J1650; J7030

== ENCOUNTER 2017-12-05 21:50 | Inpatient (IN) | payer MEDICARE ==
[2017-12-05 23:35] LABS: Basophils % (Auto) 0.6 % (0.0-1.8); Eosinophils % (Auto) 0.3 % (0.0-4.3); Hematocrit 39.7 % (35.5-45.6); Hemoglobin 13.6 gm/dl (11.8-15.2); Lymphocytes % (Auto) 18.1 % (13.4-35.0); Mean Corpuscular HGB Conc 34 % (32-34); Mean Corpuscular Hemoglobin 33 pg (28-32); Mean Corpuscular Volume 95 fl (84-94); Monocytes # (Auto) 0.8 K/mm3 (0.0-0.8); Monocytes % (Auto) 14.5 % (0.0-7.3); Platelet Count 118 K/mm3 (140-440); Red Blood Count 4.16 M/mm3 (3.65-5.03); Red Cell Distribution Width 14.1 % (13.2-15.2)
--- NOTE | 2017-12-05 23:46 | XRay Report ---
FINAL REPORT PROCEDURE: XR CHEST ROUTINE 2V TECHNIQUE: PA and lateral chest radiographs were obtained. CPT 02602 HISTORY: shortness of breath COMPARISON: 09/11/2017 FINDINGS: Heart: Normal. Mediastinum/Vessels: Normal. Lungs/Pleural space: Lungs are expanded. There are mild fibrotic changes. There are no acute infiltrates. There is no pleural effusion or pneumothorax.. Bony thorax: No acute osseous abnormality. Other: IMPRESSION: There is no acute cardiopulmonary abnormality..
--- NOTE | 2017-12-05 23:51 | Emergency Department Report ---
ED Chest Pain HPI - General Chief Complaint: Chest Pain Stated Complaint: CHEST PAIN Time Seen by Provider: 12/05/17 23:26 Source: patient Mode of arrival: Ambulatory Limitations: No Limitations - History of Present Illness Initial Comments: Mr. Houser is a pleasant 67 yo male with hx of HTN, tobacco abuse, dyslipidemia, UTI/sepsis, BPH who presents with pleuritic left chest pain for the past 1 1/2 days. Gradual onset of the pain. Pain originates at the left lower rib cage and radiates to the left anterior chest. Sharp moderately severe pain. Worse with deep breath. No hx of similar pain. Denies cough. According to EMR admitted August for sepsis. -: Gradual, days(s) Onset: during rest Pain Location: left chest Severity: moderate Quality: sharp Worsens With: inspiration re: denies: nausea, vomting, diaphoresis Other Symptoms: denies: cough, fever - Related Data Home Medications Medication Instructions Recorded Confirmed Last Taken Ergocalciferol [Vitamin D2] 50,000 units PO QWEEK 09/11/17 09/11/17 Unknown Lisinopril [Zestril] 10 mg PO QDAY 09/11/17 09/11/17 Unknown Simvastatin [Zocor TAB] 20 mg PO QPM 09/11/17 09/11/17 Unknown Tamsulosin [Flomax] 0.4 mg PO QDAY 09/11/17 09/11/17 Unknown amLODIPine [Norvasc] 10 mg PO QDAY 09/11/17 09/11/17 Unknown Previous Rx's Medication Instructions Recorded Last Taken Type Doxycycline [Vibramycin CAP] 100 mg PO BID #20 capsule 09/18/17 Unknown Rx Allergies Allergy/AdvReac Type Severity Reaction Status Date / Time shrimp Allergy Unknown Verified 09/12/17 14:19 Heart Score - HEART Score History: Slightly suspicious EKG: Significant ST-depression Age: > 65 Risk factors: 1-2 risk factors Troponin: < normal limit HEART Score: 5 ED Review of Systems ROS: Stated complaint: CHEST PAIN Other details as noted in HPI Comment: All other systems reviewed and negative Constitutional: denies: fever, malaise Respiratory: denies: cough Cardiovascular: chest pain ED Past Medical Hx - Past Medical History Previous Medical History?: Yes Hx Hypertension: Yes Hx Diabetes: No Hx Arthritis: Yes Hx Asthma: No Hx COPD: No Hx Tuberculosis: No - Surgical History Past Surgical History?: Yes Additional Surgical History: Spinal surgery - Social History Smoking Status: Current Every Day Smoker Substance Use Type: None - Medications Home Medications: Home Medications Medication Instructions Recorded Confirmed Last Taken Type Ergocalciferol [Vitamin D2] 50,000 units PO QWEEK 09/11/17 09/11/17 Unknown History Lisinopril [Zestril] 10 mg PO QDAY 09/11/17 09/11/17 Unknown History Simvastatin [Zocor TAB] 20 mg PO QPM 09/11/17 09/11/17 Unknown History Tamsulosin [Flomax] 0.4 mg PO QDAY 09/11/17 09/11/17 Unknown History amLODIPine [Norvasc] 10 mg PO QDAY 09/11/17 09/11/17 Unknown History Doxycycline [Vibramycin CAP] 100 mg PO BID #20 capsule 09/18/17 Unknown Rx ED Physical Exam - General Limitations: No Limitations General appearance: alert, in no apparent distress - Head Head exam: Present: atraumatic, normocephalic - Eye Eye exam: Present: normal appearance - ENT ENT exam: Present: mucous membranes moist - Neck Neck exam: Present: normal inspection. Absent: tenderness, meningismus - Respiratory Respiratory exam: Present: normal lung sounds bilaterally. Absent: respiratory distress, wheezes, rales, rhonchi - Cardiovascular Cardiovascular Exam: Present: normal rhythm, tachycardia, normal heart sounds. Absent: systolic murmur, diastolic murmur, rubs, gallop - GI/Abdominal GI/Abdominal exam: Present: soft, normal bowel sounds. Absent: distended, tenderness, guarding, rebound - Rectal Rectal exam: Present: deferred - Extremities Exam Extremities exam: Present: normal inspection - Back Exam Back exam: Present: normal inspection - Neurological Exam Neurological exam: Present: alert, oriented X3 - Psychiatric Psychiatric exam: Present: normal affect, normal mood - Skin Skin exam: Present: warm, dry, intact, normal color. Absent: rash ED Course Vital Signs 12/05/17 22:23 Temperature 98.3 F Pulse Rate 101 H Respiratory 20 Rate Blood Pressure 128/78 O2 Sat by Pulse 97 Oximetry ED Medical Decision Making - Lab Data Result diagrams: 12/05/17 23:21 12/05/17 23:21 - EKG Data -: EKG Interpreted by Me EKG shows normal: sinus rhythm, axis, intervals, QRS complexes, ST-T waves Rate: tachycardia - EKG Data Interpretation: no acute changes, normal EKG (except for tachycardia) - Radiology Data Radiology results: report reviewed no acute process, I did see LLL atelectasis on my personal evaluation - Medical Decision Making Mr. Houser has distal pulmonary embolism which is the cause for his pleuritic chest pain. Admitted to hospitalist service. PESI Pulmonary Emboliism Severity Index Score 80 points, Class III, intermediate risk. Concerned that patient will need outpatient resources considering recent admission for UTI sepsis delirium. Critical care attestation.: If time is entered above; I have spent that time in minutes in the direct care of this critically ill patient, excluding procedure time. ED Disposition Clinical Impression: Pulmonary embolism on left Disposition: DC-09 OP ADMIT IP TO THIS HOSP Is pt being admited?: Yes Does the pt Need Aspirin: No Condition: Stable
[2017-12-06 00:10] LABS: BUN/Creatinine Ratio 19; Blood Urea Nitrogen 13 mg/dL (9-20); Calcium 8.6 mg/dL (8.4-10.2); Hemolysis Index 109
[2017-12-06] MEDS ORDERED: PERCOCET 5/325 PO ONE (01:08)
[2017-12-06 02:00] LABS: Bacteria,Urine 4+ /HPF (Negative); Bilirubin,Urine NEG (Negative); Blood,Urine NEG (Negative); Color,Urine Yellow (Yellow); Protein,Urine <15 mg/dL mg/dL (Negative); Urobilinogen,Urine < 2.0 mg/dL (<2.0)
--- NOTE | 2017-12-06 02:26 | Cat Scan Report ---
FINAL REPORT PROCEDURE: CT ANGIO CHEST TECHNIQUE: Computerized tomographic angiography of the chest was performed after the IV injection of iodinated nonionic contrast including image processing. The image data was postprocessed using 2-dimensional multiplanar reformatted (MPR) and 3-dimensional (MIP and/or volume rendered) techniques. HISTORY: pleuritic chest pain tachycardia COMPARISON: No prior studies are available for comparison. FINDINGS: Heart and pericardium: Normal. Thoracic aorta: There is calcified plaque in the thoracic aorta. There is no aneurysm or dissection.. Pulmonary vasculature: There is an embolus in the left basilar pulmonary artery branches. There is no large central embolus or saddle embolus.. Lymph nodes: No enlarged thoracic lymph nodes. Lungs: There is moderate COPD. There are fibrotic changes and atelectasis at the lung bases. There are no acute infiltrates.. Pleural space: There is no pleural effusion or pneumothorax.. Musculoskeletal structures: No significant abnormality. Upper abdominal structures: No significant abnormality. IMPRESSION: Distal left basilar pulmonary embolism. There is no thoracic aortic aneurysm or dissection. was notified by telephone at 1:25 a.m. [facility]
[2017-12-06] MEDS ORDERED: TYLENOL PO PRN (03:51)
[2017-12-06] MEDS ORDERED: ZOFRAN IV PRN (03:51)
[2017-12-06] MEDS ORDERED: SODIUM CHLORIDE FLUSH SYRINGE 10 ML IV PRN (03:51)
--- NOTE | 2017-12-06 04:11 | History and Physical Report ---
History of Present Illness Date of examination: 12/06/17 History of present illness: This is a 67-year-old man with history of hypertension, BPH, osteoarthritis was brought to the ER for evaluation because of chest pain. In the Left chest and left sidedescribes as sharp pain when he takes a deep breath, ongoing over the last 4 days, no radiation, intensity 5/10. He has a sedentary lifestyle. No pain in the legs Review of systems Constitutional: no weight loss, chills, fever Ears, eyes, nose, mouth and throat: no nasal congestion, no nasal discharge, no sinus pressure, no vision change, no red eye. Neck: No neck pain or rigidity. Cardiovascular: no palpitations Respiratory: no cough, shortness of breath Gastrointestinal: no abdominal pain hematochezia Genitourinary : no frequency , no hematuria Musculoskeletal: no joint swelling or muscle ache Integumentary: no rash, no pruritis Neurological: no parathesias, no numbness, no focal weakness Endocrine: no cold or heat intolerance, no polyuria or polydipsia Hematologic/Lymphatic: no easy bruising, no easy bleeding, no gland swelling Allergic/Immunologic: no urticaria, no angioedema. PAST MEDICAL HISTORY: hypertension BPH, osteoarthritis PAST SURGICAL HISTORY: Neck Surgery SOCIAL HISTORY: Smokes 5 cigarettes a day, +alcohol, no drugs FAMILY HISTORY: Hypertension Medications and Allergies Allergies Allergy/AdvReac Type Severity Reaction Status Date / Time shrimp Allergy Unknown Verified 09/12/17 14:19 Home Medications Medication Instructions Recorded Confirmed Last Taken Type Ergocalciferol [Vitamin D2] 50,000 units PO QWEEK 09/11/17 09/11/17 Unknown History Lisinopril [Zestril] 10 mg PO QDAY 09/11/17 09/11/17 Unknown History Simvastatin [Zocor TAB] 20 mg PO QPM 09/11/17 09/11/17 Unknown History Tamsulosin [Flomax] 0.4 mg PO QDAY 09/11/17 09/11/17 Unknown History amLODIPine [Norvasc] 10 mg PO QDAY 09/11/17 09/11/17 Unknown History Doxycycline [Vibramycin CAP] 100 mg PO BID #20 capsule 09/18/17 Unknown Rx Active Meds: Active Medications Acetaminophen (Tylenol) 650 mg PO Q4H PRN PRN Reason: Pain MILD(1-3)/Fever >100.5/LINDSEY Apixaban (Eliquis) 2.5 mg PO Q12HR AARON; Protocol Ceftriaxone Sodium (Rocephin/Ns 1 Gm/50 Ml) 1 gm in 50 mls @ 100 mls/hr IV Q24H AARON; Protocol Ondansetron HCl (Zofran) 4 mg IV Q8H PRN PRN Reason: Nausea And Vomiting Oxycodone/Acetaminophen (Percocet 5/325) 1 tab PO Q6H PRN PRN Reason: Pain, Moderate (4-6) Sodium Chloride (Sodium Chloride Flush Syringe 10 Ml) 10 ml IV BID AARON Sodium Chloride (Sodium Chloride Flush Syringe 10 Ml) 10 ml IV PRN PRN PRN Reason: LINE FLUSH Exam - Physical Exam Narrative exam: Gen. appearance: Patient lying in bed, no apparent distress HEENT: Normocephalic, atraumatic, pupils equally round and reactive to light, extraocular movement intact, and no sclericterus,. No JVD or thyromegaly or nodule,neck supple, no carotid bruit ,mucous membranes moist, no exudate or erythema Heart: S1, S2, regular rate and rhythm Lungs: Clear bilaterally, breathing comfortable Abdomen: Positive bowel sounds, non-tender, nondistended, no organomegaly Extremity:no edema cyanosis, clubbing Skin: no rash, dry, warm Neuro: Oriented 3, cranial nerves II-12 intact, speech is fluent, motor and sensory intact - Constitutional Vitals: Temp Pulse Resp BP Pulse Ox 98.3 F 101 H 20 128/78 97 12/05/17 22:23 12/05/17 22:23 12/05/17 22:23 12/05/17 22:23 12/05/17 22:23 Results - Labs CBC & Chem 7: 12/05/17 23:21 12/05/17 23:21 Labs: Abnormal lab results 12/05/17 12/05/17 12/06/17 Range/Units 23:21 23:21 00:37 MCV 95 H (84-94) fl MCH 33 H (28-32) pg Plt Count 118 L (140-440) K/mm3 [place] % (Auto) 14.5 H (0.0-7.3) % Lymph # 1.0 L (1.2-5.4) K/mm3 Sodium 135 L (137-145) mmol/L Creatinine 0.7 L (0.8-1.5) mg/dL Urine WBC (Auto) 33.0 H (0.0-6.0) /HPF - Imaging and Cardiology EKG: image reviewed Chest x-ray: report reviewed CT scan - chest: report reviewed Assessment and Plan Assessment Acute pulmonary emboli UTI Hypertension BPH thrombocytopenia PLAN Admit to medicine Start eliquis, monitor platelets, check Doppler Start IV antibiotic, follow cultures Continue appropiate outpatient medications
[2017-12-06] MEDS: ROCEPHIN/NS 1 GM/50 ML 1 GM/50 ML BAG IV SCH (05:08)
[2017-12-06] MEDS ORDERED: ELIQUIS PO SCH (10:00)
[2017-12-06] MEDS: NORVASC PO SCH (11:17)
[2017-12-06] MEDS: ZESTRIL PO SCH (11:18)
[2017-12-06] MEDS: SODIUM CHLORIDE FLUSH SYRINGE 10 ML IV SCH ×2 (11:18→21:39)
[2017-12-06] MEDS: ELIQUIS PO SCH ×2 (11:31→21:39)
[2017-12-06] MEDS: FLOMAX PO SCH (11:31)
[2017-12-06] MEDS: PERCOCET 5/325 PO PRN ×2 (13:11→21:38)
--- NOTE | 2017-12-06 16:12 | Event Note ---
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
--- NOTE | 2017-12-06 17:18 | Vascular Lab Report ---
LOWER EXTREMITY VENOUS DUPLEX: REASON FOR EXAM: Deep venous thrombosis. COMMENTS ON THE RIGHT: All veins visualized are freely compressible without evidence of internal echogenicity. Flow is spontaneous and phasic throughout. COMMENTS ON THE LEFT: All veins visualized are freely compressible without evidence of internal echogenicity. Flow is spontaneous and phasic throughout. IMPRESSION: No evidence of acute or chronic deep venous thrombosis in either lower extremity.
[2017-12-06] MEDS: PRAVACHOL PO SCH (21:38)
[2017-12-07] MEDS: ROCEPHIN/NS 1 GM/50 ML 1 GM/50 ML BAG IV SCH (03:43)
[2017-12-07] MEDS: PERCOCET 5/325 PO PRN ×2 (05:16→09:34)
[2017-12-07 06:25] LABS: Basophils % (Auto) 0.3 % (0.0-1.8); Eosinophils % (Auto) 0.2 % (0.0-4.3); Hematocrit 35.8 % (35.5-45.6); Hemoglobin 12.4 gm/dl (11.8-15.2); Lymphocytes # (Auto) 0.8 K/mm3 (1.2-5.4); Lymphocytes % (Auto) 15.5 % (13.4-35.0); Mean Corpuscular HGB Conc 35 % (32-34); Mean Corpuscular Hemoglobin 33 pg (28-32); Mean Corpuscular Volume 95 fl (84-94); Monocytes # (Auto) 0.7 K/mm3 (0.0-0.8); Monocytes % (Auto) 14.4 % (0.0-7.3); Platelet Count 108 K/mm3 (140-440); Red Blood Count 3.79 M/mm3 (3.65-5.03); Red Cell Distribution Width 14.4 % (13.2-15.2)
[2017-12-07 06:51] LABS: BUN/Creatinine Ratio 17; Blood Urea Nitrogen 10 mg/dL (9-20); Calcium 8.4 mg/dL (8.4-10.2); Hemolysis Index 6
[2017-12-07] MEDS ORDERED: K-DUR PO NR (08:00)
[2017-12-07] MEDS: NORVASC PO SCH (09:33)
[2017-12-07] MEDS: FLOMAX PO SCH (09:35)
[2017-12-07] MEDS: ELIQUIS PO SCH ×2 (09:35→21:51)
[2017-12-07] MEDS: SODIUM CHLORIDE FLUSH SYRINGE 10 ML IV SCH ×2 (09:36→21:51)
--- NOTE | 2017-12-07 17:20 | Progress Note ---
Assessment and Plan Assessment and plan: --Acute pulmonary embolism; Oxygen titrated to O2 sats more than 90%, Eliquis Pain medications, supportive care, hyper coag workup Hematology consult --Hypertension; moderate control, continue current antihypertensives When necessary medications --Possible urinary tract infection; continue empiric antibiotics Follow cultures --Benign prosthetic hypertrophy; supportive care and continue current management --Thrombocytopenia; chronic, closely monitor platelets and adjust as needed No evidence of bleeding --DVT prophylaxis; patient is already on Eliquis Closely monitor the patient and adjust the management as needed Possible discharge in 1-2 days stable History Interval history: Patient seen and examined medical records reviewed Complaints of mild chest pain and shortness of breath Admitted with acute PE, on Eliquis Vital signs reviewed Hospitalist Physical - Constitutional Vitals: Temp Pulse Resp BP Pulse Ox 97.7 F 98 H 20 138/80 97 12/07/17 08:17 12/07/17 16:00 12/07/17 10:00 12/07/17 09:33 12/07/17 10:00 General appearance: Present: no acute distress, well-nourished - EENT Eyes: Present: PERRL, EOM intact - Neck Neck: Present: supple, normal ROM - Respiratory Respiratory effort: normal Respiratory: bilateral: diminished, rhonchi, negative: rales, wheezing - Cardiovascular Rhythm: regular Heart Sounds: Present: S1 & S2 - Extremities Extremities: no ischemia, No edema - Abdominal General gastrointestinal: soft, non-tender, non-distended, normal bowel sounds - Integumentary Integumentary: Present: clear, warm - Psychiatric Psychiatric: appropriate mood/affect, cooperative - Neurologic Neurologic: CNII-XII intact, moves all extremities Results - Labs CBC & Chem 7: 12/07/17 05:51 12/07/17 05:51 Labs: Laboratory Last Values WBC 5.1 K/mm3 (4.5-11.0) 12/07/17 05:51 RBC 3.79 M/mm3 (3.65-5.03) 12/07/17 05:51 Hgb 12.4 gm/dl (11.8-15.2) 12/07/17 05:51 Hct 35.8 % (35.5-45.6) 12/07/17 05:51 MCV 95 fl (84-94) H 12/07/17 05:51 MCH 33 pg (28-32) H 12/07/17 05:51 MCHC 35 % (32-34) H 12/07/17 05:51 RDW 14.4 % (13.2-15.2) 12/07/17 05:51 Plt Count 108 K/mm3 (140-440) L 12/07/17 05:51 Lymph % (Auto) 15.5 % (13.4-35.0) 12/07/17 05:51 [place] % (Auto) 14.4 % (0.0-7.3) H 12/07/17 05:51 Eos % (Auto) 0.2 % (0.0-4.3) 12/07/17 05:51 Baso % (Auto) 0.3 % (0.0-1.8) 12/07/17 05:51 Lymph # 0.8 K/mm3 (1.2-5.4) L 12/07/17 05:51 [place] # 0.7 K/mm3 (0.0-0.8) 12/07/17 05:51 Eos # 0.0 K/mm3 (0.0-0.4) 12/07/17 05:51 Baso # 0.0 K/mm3 (0.0-0.1) 12/07/17 05:51 Seg Neutrophils % 69.6 % (40.0-70.0) 12/07/17 05:51 Seg Neutrophils # 3.6 K/mm3 (1.8-7.7) 12/07/17 05:51 Sodium 137 mmol/L (137-145) 12/07/17 05:51 Potassium 3.4 mmol/L (3.6-5.0) L 12/07/17 05:51 Chloride 102.6 mmol/L (98-107) 12/07/17 05:51 Carbon Dioxide 23 mmol/L (22-30) 12/07/17 05:51 Anion Gap 15 mmol/L 12/07/17 05:51 BUN 10 mg/dL (9-20) 12/07/17 05:51 Creatinine 0.6 mg/dL (0.8-1.5) L 12/07/17 05:51 Estimated GFR > 60 ml/min 12/07/17 05:51 BUN/Creatinine Ratio 17 % 12/07/17 05:51 Glucose 92 mg/dL (75-100) 12/07/17 05:51 Calcium 8.4 mg/dL (8.4-10.2) 12/07/17 05:51 Urine Color Yellow (Yellow) 12/06/17 00:37 Urine Turbidity Clear (Clear) 12/06/17 00:37 Urine pH 6.0 (5.0-7.0) 12/06/17 00:37 Ur Specific [place] 1.003 (1.003-1.030) 12/06/17 00:37 Urine Protein <15 mg/dl mg/dL (Negative) 12/06/17 00:37 Urine Glucose (UA) Neg mg/dL (Negative) 12/06/17 00:37 Urine Ketones Neg mg/dL (Negative) 12/06/17 00:37 Urine Blood Neg (Negative) 12/06/17 00:37 Urine Nitrite Neg (Negative) 12/06/17 00:37 Urine Bilirubin Neg (Negative) 12/06/17 00:37 Urine Urobilinogen < 2.0 mg/dL (<2.0) 12/06/17 00:37 Ur Leukocyte Esterase Lg (Negative) 12/06/17 00:37 Urine WBC (Auto) 33.0 /HPF (0.0-6.0) H 12/06/17 00:37 Urine RBC (Auto) 2.0 /HPF (0.0-6.0) 12/06/17 00:37 Urine Bacteria (Auto) 4+ /HPF (Negative) 12/06/17 00:37
[2017-12-07] MEDS: PRAVACHOL PO SCH (21:51)
--- NOTE | 2017-12-07 23:21 | Event Note ---
Date: 12/07/17 admitted for chest pain PE NOAC dictated - [id number]
[2017-12-08] MEDS: PERCOCET 5/325 PO PRN (05:22)
[2017-12-08] MEDS: ROCEPHIN/NS 1 GM/50 ML 1 GM/50 ML BAG IV SCH (05:24)
--- NOTE | 2017-12-08 06:31 | Consultation ---
REFERRED BY: Palma Womack MD REASON FOR CONSULTATION: Pulmonary embolism, left basilar pulmonary artery branches. HISTORY OF PRESENT ILLNESS: The patient is a 67-year-old male with past history of hypertension, prostate issues, osteoarthritis, pancytopenia in the past. He came to the hospital because of left-sided chest pain for 3-4 days. This worsened with deep breath. No history of leg pain. He has some form of dermatitis also for which he is using cream. During this hospitalization, leg DVT study was negative and CTA chest showed left-sided pulmonary embolism. The patient has been started on management and treatment for PE. I have been asked to evaluate the patient in view of PE. At this time, no headache, no visual disturbance. No ear discharge. Had chest pain, had shortness of breath. No abdominal pain, no vomiting, no diarrhea, no dysuria. No seizure, syncope or loss of consciousness. No focal weakness. No bleeding issues. PAST MEDICAL HISTORY: As above, hypertension, BPH, osteoarthritis and skin dermatitis with hypopigmentation. PAST SURGICAL HISTORY: Neck surgery. SOCIAL HISTORY: Smokes 5 cigarettes a day. Also drinks alcohol. No history of drug usage. FAMILY HISTORY: Hypertension present. ALLERGIES: SHRIMP. HOME MEDICATIONS: Included vitamin D, lisinopril, simvastatin, Flomax, amlodipine, doxycycline. PHYSICAL EXAMINATION: VITAL SIGNS: Temperature 97.7, pulse 108, respirations 20, BP 138/80. HEENT: No pallor, no icterus. NECK: No neck lymph nodes. HEART: S1, S2. LUNGS: Clear to auscultation anteriorly. ABDOMEN: Soft. EXTREMITIES: No calf tenderness. The patient has hypopigmented areas in the legs and hand. NEUROLOGIC: Alert, awake, oriented. Answers simple questions appropriately, moving all 4 extremities. LABORATORY DATA: White cell 5, hemoglobin 12, MCV 95, platelets 108. Potassium 3.4, creatinine 0.6. RADIOLOGY: As above. CTA chest shows left pulmonary artery branches having PE. ASSESSMENT AND PLAN: 1. Pulmonary embolism. 2. The patient on anticoagulation. 3. Thrombocytopenia. At this time, platelets are adequate for pulmonary embolism management. We will follow the trend. 4. History of alcoholism. This may have a role in cytopenia. 5. History of hypertension. 6. History of prostate issues. 7. History of hyperlipidemia. 8. Hypercoagulable workup and outpatient followup. At this time NOAC Cinda is being used. JOB# [id number] NM/NTS
[2017-12-08] MEDS: ZESTRIL PO SCH ×2 (09:24→11:10)
[2017-12-08] MEDS: ELIQUIS PO SCH (09:24)
[2017-12-08] MEDS: NORVASC PO SCH (09:25)
[2017-12-08] MEDS: FLOMAX PO SCH (09:25)
[2017-12-08] MEDS: SODIUM CHLORIDE FLUSH SYRINGE 10 ML IV SCH (11:10)
[2017-12-08 14:13] VITALS: BP 149/67
--- NOTE | 2017-12-08 14:24 | Discharge Summary ---
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 Hospitalization Condition: Stable Disposition: DC-01 TO HOME OR SELFCARE Time spent for discharge: 32 min Core Measure Documentation - Palliative Care Palliative Care/ Comfort Measures: Not Applicable - Core Measures Any of the following diagnoses?: DVT/PE Exam - Constitutional Vitals: Temp Pulse Resp BP Pulse Ox 97.8 F 94 H 20 149/67 95 12/08/17 13:38 12/08/17 13:38 12/08/17 13:38 12/08/17 13:38 12/08/17 13:38 General appearance: Present: no acute distress, well-nourished - EENT Eyes: Present: PERRL, EOM intact - Neck Neck: Present: supple, normal ROM - Respiratory Respiratory effort: normal Respiratory: bilateral: diminished, negative: rales, rhonchi, wheezing - Cardiovascular Rhythm: regular Heart Sounds: Present: S1 & S2 - Extremities Extremities: no ischemia, No edema - Abdominal General gastrointestinal: Present: soft, non-tender, non-distended - Integumentary Integumentary: Present: clear, warm - Musculoskeletal Musculoskeletal: strength equal bilaterally - Psychiatric Psychiatric: appropriate mood/affect, cooperative - Neurologic Neurologic: CNII-XII intact, moves all extremities Plan Activity: no restrictions Diet: low fat, low salt Follow up with: GENESIS BURNS MD [Primary Care Provider] - 7 Days CLAUDIA DEWEY MD [Staff Physician] - 7 Days Prescriptions: Apixaban [Eliquis] 5 mg PO Q12HR #42 tablet oxyCODONE /ACETAMINOPHEN [Percocet 5/325 mg] 1 tab PO BID PRN #10 tablet PRN Reason: Pain, Moderate (4-6)
[2017-12-13] MEDS ORDERED: ELIQUIS PO SCH (10:00)
== END 2017-12-08 15:45 | disposition home or self-care (01) | DRG 689 ==
LOC: ED 21:50 → 4A 12-06 04:38 → 2B-ACE 12-06 10:30
PROVIDERS: ADMIT Internal Medicine; ATTEND Internal Medicine
DX: N39.0 Urinary tract infection, site not specified (principal); I26.99 Other pulmonary embolism without acute cor pulmonale; I10 Essential (primary) hypertension; M19.90 Unspecified osteoarthritis, unspecified site; N40.0 Benign prostatic hyperplasia without lower urinary tract symptoms; F17.210 Nicotine dependence, cigarettes, uncomplicated; Z82.49 Family history of ischemic heart disease and other diseases of the circulatory system; Z91.013 Allergy to seafood; D69.6 Thrombocytopenia, unspecified; Z79.01 Long term (current) use of anticoagulants; F10.20 Alcohol dependence, uncomplicated; E78.5 Hyperlipidemia, unspecified
CPT/HCPCS: 36415; 71046; 71275; 80048; 81001; 83516; 85025; 85210; 85220; 85301; 85305; 85307; 85613; 86147; 87040; 93005; 93010; 93970; 96365; A9270-GY; G8978-GP; G8979-GP; G8980-GP; J0696; Q9967

== ENCOUNTER 2018-11-12 17:16 | Inpatient (IN) | payer MEDICARE ==
[2018-11-12] MEDS ORDERED: NACL 0.9% 1000 ML 1,000 ML IV ONE (17:42)
--- NOTE | 2018-11-12 17:47 | Emergency Department Report ---
- General Stated complaint: UTI Time Seen by Provider: 11/12/18 17:31 Source: patient, family, EMS, old records reviewed Mode of arrival: Stretcher Limitations: Altered Mental Status - History of Present Illness Initial comments: 68-year-old male with a past medical history pulmonary embolism currently on Eliquis, hypertension, BPH, recurrent UTIs, and chronic thrombocytopenia and recurrent UTIs presents to the hospital complains of generalized weakness and lower back pain since last night. Patient apparently has been in the bed all day and has not had much to eat or drink. Patient as she urinated on himself in the bed. No abdominal pain, nausea vomiting, or fever. He is also slightly confused and oriented to person, place, but not to year. This is a change from his baseline as per his daughter at the bedside. He is typically a and O 3 and amylase with a cane due to balance problems secondary to a previous neck injury. Patient has had similar symptoms in the past with urinary tract infections. No previous cardiac history reported. PMD Dr. Gerardo Polk. - Related Data Home Medications Medication Instructions Recorded Confirmed Last Taken Ergocalciferol [Vitamin D2] 50,000 units PO QWEEK 09/11/17 12/06/17 12/05/17 Lisinopril [Zestril] 10 mg PO QDAY 09/11/17 12/06/17 12/05/17 Simvastatin (Nf) [Zocor TAB] 20 mg PO QPM 09/11/17 12/06/17 12/05/17 Tamsulosin [Flomax] 0.4 mg PO QDAY 09/11/17 12/06/17 12/05/17 amLODIPine [Norvasc] 10 mg PO QDAY 09/11/17 12/06/17 12/05/17 Previous Rx's Medication Instructions Recorded Last Taken Type Apixaban [Eliquis] 2 tab PO BID #18 tablet 12/08/17 Unknown Rx Apixaban [Eliquis] 5 mg PO Q12HR #42 tablet 12/08/17 Unknown Rx oxyCODONE /ACETAMINOPHEN [Percocet 1 tab PO BID PRN #10 tablet 12/08/17 Unknown Rx 5/325 mg] Allergies Allergy/AdvReac Type Severity Reaction Status Date / Time shrimp Allergy Unknown Verified 09/12/17 14:19 ED Review of Systems ROS: Stated complaint: UTI Other details as noted in HPI Comment: All other systems reviewed and negative ED Past Medical Hx - Past Medical History Hx Hypertension: Yes Hx Diabetes: No Hx Pulmonary Embolism: Yes (Current diagnosis) Hx Arthritis: Yes Hx Asthma: No Hx COPD: No Hx Tuberculosis: No - Surgical History Additional Surgical History: Spinal surgery - Social History Smoking Status: Current Every Day Smoker - Medications Home Medications: Home Medications Medication Instructions Recorded Confirmed Last Taken Type Ergocalciferol [Vitamin D2] 50,000 units PO QWEEK 09/11/17 12/06/17 12/05/17 History Lisinopril [Zestril] 10 mg PO QDAY 09/11/17 12/06/17 12/05/17 History Simvastatin (Nf) [Zocor TAB] 20 mg PO QPM 09/11/17 12/06/17 12/05/17 History Tamsulosin [Flomax] 0.4 mg PO QDAY 09/11/17 12/06/17 12/05/17 History amLODIPine [Norvasc] 10 mg PO QDAY 09/11/17 12/06/17 12/05/17 History Apixaban [Eliquis] 2 tab PO BID #18 tablet 12/08/17 Unknown Rx Apixaban [Eliquis] 5 mg PO Q12HR #42 tablet 12/08/17 Unknown Rx oxyCODONE /ACETAMINOPHEN [Percocet 1 tab PO BID PRN #10 tablet 12/08/17 Unknown Rx 5/325 mg] ED Physical Exam - Other Other exam information: General: No acute distress Head: Atraumatic normocephalic Eyes: Normal appearance, pupils equal reactive to light, extraocular movements intact ENT: Normal oropharynx Neck: Normal appearance, no C-spine tenderness, no meningismus Chest: Clear to auscultation bilaterally, no wheezes, rales, or crackles Cardiovascular: Regular rate and rhythm Abdomen: Soft, nondistended, nontender, no rebound or guarding, normal bowel sounds Back: Normal inspection, nontender examination Extremity: Normal inspection, no deformity, full range of motion Neuro: Alert and oriented 3, speech clear, generalized weakness and difficulty lifting himself up in the bed without assistance. Equal hand junior financial analyst and foot dorsiflexion. Minimum antigravity movement of both right and left leg. Sensation grossly intact. Psychiatric: Normal affect Skin: No rash, warmth, or erythema ED Course Vital Signs 11/12/18 11/12/18 11/12/18 17:39 17:49 18:01 Temperature 99.5 F Pulse Rate 122 H 109 H 110 H Respiratory 17 16 30 H Rate Blood Pressure 140/77 Blood Pressure [Right] O2 Sat by Pulse 100 Oximetry 11/12/18 11/12/18 11/12/18 18:09 18:13 18:15 Temperature Pulse Rate 111 H 105 H Respiratory 17 18 24 Rate Blood Pressure 148/81 Blood Pressure 149/66 [Right] O2 Sat by Pulse 100 Oximetry 11/12/18 11/12/18 11/12/18 18:31 18:45 19:00 Temperature Pulse Rate 106 H 105 H 103 H Respiratory 18 31 H 19 Rate Blood Pressure 134/74 134/74 148/88 Blood Pressure [Right] O2 Sat by Pulse Oximetry 11/12/18 19:15 Temperature Pulse Rate 97 H Respiratory 25 H Rate Blood Pressure 145/81 Blood Pressure [Right] O2 Sat by Pulse Oximetry ED Medical Decision Making - Lab Data Result diagrams: 11/12/18 18:45 11/12/18 17:44 Lab Results 11/12/18 11/12/18 11/12/18 Range/Units 17:44 17:44 17:44 WBC (4.5-11.0) K/mm3 RBC (3.65-5.03) M/mm3 Hgb (11.8-15.2) gm/dl Hct (35.5-45.6) % MCV (84-94) fl MCH (28-32) pg MCHC (32-34) % RDW (13.2-15.2) % Plt Count (140-440) K/mm3 Lymph % (Auto) [place] % (Auto) Eos % (Auto) Baso % (Auto) Lymph # [place] # Eos # Baso # Add Manual Diff Total Counted Seg Neuts % (Manual) (40.0-70.0) % Band Neutrophils % % Lymphocytes % (Manual) (13.4-35.0) % Reactive Lymphs % (Man) % Monocytes % (Manual) (0.0-7.3) % Eosinophils % (Manual) (0.0-4.3) % Basophils % (Manual) (0.0-1.8) % Metamyelocytes % % Myelocytes % % Promyelocytes % % Blast Cells % % Nucleated RBC % Seg Neutrophils # Seg Neutrophils # Man (1.8-7.7) K/mm3 Band Neutrophils # K/mm3 Lymphocytes # (Manual) (1.2-5.4) K/mm3 Abs React Lymphs (Man) K/mm3 Monocytes # (Manual) (0.0-0.8) K/mm3 Eosinophils # (Manual) (0.0-0.4) K/mm3 Basophils # (Manual) (0.0-0.1) K/mm3 Metamyelocytes # K/mm3 Myelocytes # K/mm3 Promyelocytes # K/mm3 Blast Cells # K/mm3 WBC Morphology Hypersegmented Neuts Hyposegmented Neuts Hypogranular Neuts Smudge Cells Toxic Granulation Toxic Vacuolation Dohle Bodies Pelger-Huet Anomaly Anil Rods Platelet Estimate Clumped Platelets Plt Clumps, EDTA Large Platelets Giant Platelets Platelet Satelliting Plt Morphology Comment RBC Morphology Dimorphic RBCs Polychromasia Hypochromasia Poikilocytosis Anisocytosis Microcytosis Macrocytosis Spherocytes Pappenheimer Bodies Sickle Cells Target Cells Tear Drop Cells Ovalocytes Helmet Cells Cohen-Royal Bodies [place] Rings Sullivan Cells Bite Cells Crenated Cell Elliptocytes Acanthocytes (Spur) Rouleaux Hemoglobin C Crystals Schistocytes Malaria parasites Jonas Bodies Hem Pathologist Commnt VBG pH (7.320-7.420) Sodium 135 L (137-145) mmol/L Potassium 5.2 H (3.6-5.0) mmol/L Chloride 100.5 (98-107) mmol/L Carbon Dioxide 19 L (22-30) mmol/L Anion Gap 21 mmol/L BUN 12 (9-20) mg/dL Creatinine 0.8 (0.8-1.5) mg/dL Estimated GFR > 60 ml/min BUN/Creatinine Ratio 15 % Glucose 105 H (75-100) mg/dL Lactic Acid 2.50 H* (0.7-2.0) mmol/L Calcium 8.7 (8.4-10.2) mg/dL Total Bilirubin 0.60 (0.1-1.2) mg/dL AST 37 (5-40) units/L ALT 8 (7-56) units/L Alkaline Phosphatase 58 (35-129) units/L Troponin T < 0.010 (0.00-0.029) ng/mL Total Protein 9.0 H (6.3-8.2) g/dL Albumin 3.6 L (3.9-5) g/dL Albumin/Globulin Ratio 0.7 % Urine Color (Yellow) Urine Turbidity (Clear) Urine pH (5.0-7.0) Ur Specific [place] (1.003-1.030) Urine Protein (Negative) mg/dL Urine Glucose (UA) (Negative) mg/dL Urine Ketones (Negative) mg/dL Urine Blood (Negative) Urine Nitrite (Negative) Urine Bilirubin (Negative) Urine Urobilinogen (<2.0) mg/dL Ur Leukocyte Esterase (Negative) Urine WBC (Auto) (0.0-6.0) /HPF Urine RBC (Auto) (0.0-6.0) /HPF U Epithel Cells (Auto) (0-13.0) /HPF Urine Mucus /HPF 11/12/18 11/12/18 11/12/18 Range/Units 17:44 18:45 19:06 WBC 12.1 H (4.5-11.0) K/mm3 RBC 4.26 (3.65-5.03) M/mm3 Hgb 13.1 (11.8-15.2) gm/dl Hct 38.7 (35.5-45.6) % MCV 91 (84-94) fl MCH 31 (28-32) pg MCHC 34 (32-34) % RDW 15.0 (13.2-15.2) % Plt Count 115 L (140-440) K/mm3 Lymph % (Auto) Not Reportable [place] % (Auto) Not Reportable Eos % (Auto) Not Reportable Baso % (Auto) Not Reportable Lymph # Not Reportable [place] # Not Reportable Eos # Not Reportable Baso # Not Reportable Add Manual Diff Complete Total Counted 100 Seg Neuts % (Manual) 80.0 H (40.0-70.0) % Band Neutrophils % 0 % Lymphocytes % (Manual) 10.0 L (13.4-35.0) % Reactive Lymphs % (Man) 0 % Monocytes % (Manual) 10.0 H (0.0-7.3) % Eosinophils % (Manual) 0 (0.0-4.3) % Basophils % (Manual) 0 (0.0-1.8) % Metamyelocytes % 0 % Myelocytes % 0 % Promyelocytes % 0 % Blast Cells % 0 % Nucleated RBC % Not Reportable Seg Neutrophils # Not Reportable Seg Neutrophils # Man 9.7 H (1.8-7.7) K/mm3 Band Neutrophils # 0.0 K/mm3 Lymphocytes # (Manual) 1.2 (1.2-5.4) K/mm3 Abs React Lymphs (Man) 0.0 K/mm3 Monocytes # (Manual) 1.2 H (0.0-0.8) K/mm3 Eosinophils # (Manual) 0.0 (0.0-0.4) K/mm3 Basophils # (Manual) 0.0 (0.0-0.1) K/mm3 Metamyelocytes # 0.0 K/mm3 Myelocytes # 0.0 K/mm3 Promyelocytes # 0.0 K/mm3 Blast Cells # 0.0 K/mm3 WBC Morphology Not Reportable Hypersegmented Neuts Not Reportable Hyposegmented Neuts Not Reportable Hypogranular Neuts Not Reportable Smudge Cells Not Reportable Toxic Granulation Not Reportable Toxic Vacuolation Not Reportable Dohle Bodies Not Reportable Pelger-Huet Anomaly Not Reportable Anil Rods Not Reportable Platelet Estimate Appears decreased Clumped Platelets Not Reportable Plt Clumps, EDTA Not Reportable Large Platelets Not Reportable Giant Platelets Not Reportable Platelet Satelliting Not Reportable Plt Morphology Comment Not Reportable RBC Morphology Normal Dimorphic RBCs Not Reportable Polychromasia Not Reportable Hypochromasia Not Reportable Poikilocytosis Not Reportable Anisocytosis Not Reportable Microcytosis Not Reportable Macrocytosis Not Reportable Spherocytes Not Reportable Pappenheimer Bodies Not Reportable Sickle Cells Not Reportable Target Cells Not Reportable Tear Drop Cells Not Reportable Ovalocytes Not Reportable Helmet Cells Not Reportable Cohen-Royal Bodies Not Reportable [place] Rings Not Reportable [place] Cells Not Reportable Bite Cells Not Reportable Crenated Cell Not Reportable Elliptocytes Not Reportable Acanthocytes (Spur) Not Reportable Rouleaux Not Reportable Hemoglobin C Crystals Not Reportable Schistocytes Not Reportable Malaria parasites Not Reportable Jonas Bodies Not Reportable Hem Pathologist Commnt No VBG pH 7.441 H (7.320-7.420) Sodium (137-145) mmol/L Potassium (3.6-5.0) mmol/L Chloride (98-107) mmol/L Carbon Dioxide (22-30) mmol/L Anion Gap mmol/L BUN (9-20) mg/dL Creatinine (0.8-1.5) mg/dL Estimated GFR ml/min BUN/Creatinine Ratio % Glucose (75-100) mg/dL Lactic Acid (0.7-2.0) mmol/L Calcium (8.4-10.2) mg/dL Total Bilirubin (0.1-1.2) mg/dL AST (5-40) units/L ALT (7-56) units/L Alkaline Phosphatase (35-129) units/L Troponin T (0.00-0.029) ng/mL Total Protein (6.3-8.2) g/dL Albumin (3.9-5) g/dL Albumin/Globulin Ratio % Urine Color Yellow (Yellow) Urine Turbidity Slightly-cloudy (Clear) Urine pH 6.0 (5.0-7.0) Ur Specific [place] 1.011 (1.003-1.030) Urine Protein 100 mg/dl (Negative) mg/dL Urine Glucose (UA) Neg (Negative) mg/dL Urine Ketones Neg (Negative) mg/dL Urine Blood Lg (Negative) Urine Nitrite Neg (Negative) Urine Bilirubin Neg (Negative) Urine Urobilinogen < 2.0 (<2.0) mg/dL Ur Leukocyte Esterase Neg (Negative) Urine WBC (Auto) 2.0 (0.0-6.0) /HPF Urine RBC (Auto) 10.0 (0.0-6.0) /HPF U Epithel Cells (Auto) < 1.0 (0-13.0) /HPF Urine Mucus 1+ /HPF 11/12/18 Range/Units 20:52 WBC (4.5-11.0) K/mm3 RBC (3.65-5.03) M/mm3 Hgb (11.8-15.2) gm/dl Hct (35.5-45.6) % MCV (84-94) fl MCH (28-32) pg MCHC (32-34) % RDW (13.2-15.2) % Plt Count (140-440) K/mm3 Lymph % (Auto) [place] % (Auto) Eos % (Auto) Baso % (Auto) Lymph # [place] # Eos # Baso # Add Manual Diff Total Counted Seg Neuts % (Manual) (40.0-70.0) % Band Neutrophils % % Lymphocytes % (Manual) (13.4-35.0) % Reactive Lymphs % (Man) % Monocytes % (Manual) (0.0-7.3) % Eosinophils % (Manual) (0.0-4.3) % Basophils % (Manual) (0.0-1.8) % Metamyelocytes % % Myelocytes % % Promyelocytes % % Blast Cells % % Nucleated RBC % Seg Neutrophils # Seg Neutrophils # Man (1.8-7.7) K/mm3 Band Neutrophils # K/mm3 Lymphocytes # (Manual) (1.2-5.4) K/mm3 Abs React Lymphs (Man) K/mm3 Monocytes # (Manual) (0.0-0.8) K/mm3 Eosinophils # (Manual) (0.0-0.4) K/mm3 Basophils # (Manual) (0.0-0.1) K/mm3 Metamyelocytes # K/mm3 Myelocytes # K/mm3 Promyelocytes # K/mm3 Blast Cells # K/mm3 WBC Morphology Hypersegmented Neuts Hyposegmented Neuts Hypogranular Neuts Smudge Cells Toxic Granulation Toxic Vacuolation Dohle Bodies Pelger-Huet Anomaly Anil Rods Platelet Estimate Clumped Platelets Plt Clumps, EDTA Large Platelets Giant Platelets Platelet Satelliting Plt Morphology Comment RBC Morphology Dimorphic RBCs Polychromasia Hypochromasia Poikilocytosis Anisocytosis Microcytosis Macrocytosis Spherocytes Pappenheimer Bodies Sickle Cells Target Cells Tear Drop Cells Ovalocytes Helmet Cells Cohen-Royal Bodies [place] Rings Sullivan Cells Bite Cells Crenated Cell Elliptocytes Acanthocytes (Spur) Rouleaux Hemoglobin C Crystals Schistocytes Malaria parasites Jonas Bodies Hem Pathologist Commnt VBG pH (7.320-7.420) Sodium (137-145) mmol/L Potassium (3.6-5.0) mmol/L Chloride (98-107) mmol/L Carbon Dioxide (22-30) mmol/L Anion Gap mmol/L BUN (9-20) mg/dL Creatinine (0.8-1.5) mg/dL Estimated GFR ml/min BUN/Creatinine Ratio % Glucose (75-100) mg/dL Lactic Acid 1.00 (0.7-2.0) mmol/L Calcium (8.4-10.2) mg/dL Total Bilirubin (0.1-1.2) mg/dL AST (5-40) units/L ALT (7-56) units/L Alkaline Phosphatase (35-129) units/L Troponin T (0.00-0.029) ng/mL Total Protein (6.3-8.2) g/dL Albumin (3.9-5) g/dL Albumin/Globulin Ratio % Urine Color (Yellow) Urine Turbidity (Clear) Urine pH (5.0-7.0) Ur Specific [place] (1.003-1.030) Urine Protein (Negative) mg/dL Urine Glucose (UA) (Negative) mg/dL Urine Ketones (Negative) mg/dL Urine Blood (Negative) Urine Nitrite (Negative) Urine Bilirubin (Negative) Urine Urobilinogen (<2.0) mg/dL Ur Leukocyte Esterase (Negative) Urine WBC (Auto) (0.0-6.0) /HPF Urine RBC (Auto) (0.0-6.0) /HPF U Epithel Cells (Auto) (0-13.0) /HPF Urine Mucus /HPF - EKG Data -: EKG Interpreted by Tx EKG shows normal: sinus rhythm, axis (qrs 39), QRS complexes (qrsd 77), ST-T waves (no stemi/t inv) Rate: tachycardia (123) - Radiology Data Radiology results: report reviewed CHEST 1 VIEW INDICATION / CLINICAL INFORMATION: weakness, possible sepsis. COMPARISON: 12/05/17 FINDINGS: SUPPORT DEVICES: None. HEART / MEDIASTINUM: No significant abnormality. LUNGS / PLEURA: No significant pulmonary or pleural abnormality. No pneumothorax. ADDITIONAL FINDINGS: No significant additional findings. IMPRESSION: 1. No acute findings. No significant change. - Medical Decision Making When I initially evaluated patient and he was too weak and required a lot of assistance just to sit up in the bed. Now that he is received IV fluids and IV Rocephin he seems to be more alert, able to sit up in the bed independently using the hand rails for support, and is now alert and oriented 3 (but initally thought year was 2019). HR also improved with IVF. ED workup reveals remote infarct on CT head. I have not yet identified a fever or source of infection. Pt was emprically tx with rocephin while awaiting lab results. Pt will be admitted to the hospital for further treatment. cultures pending. - Differential Diagnosis sepsis, UTI, anemia, SD, arrhythmia, dehydration Critical Care Time: No Critical care attestation.: If time is entered above; I have spent that time in minutes in the direct care of this critically ill patient, excluding procedure time. ED Disposition Clinical Impression: Generalized weakness, Transient alteration of awareness, Dehydration, Hx pulmonary embolism, Chronic anticoagulation, Ischemic changes on head CT Disposition: DC-09 OP ADMIT IP TO THIS HOSP Is pt being admited?: Yes Condition: Stable Time of Disposition: 22:16 (Dr Ibarra/hosp)
--- NOTE | 2018-11-12 18:18 | XRay Report ---
CHEST 1 VIEW INDICATION / CLINICAL INFORMATION: weakness, possible sepsis. COMPARISON: 12/05/17 FINDINGS: SUPPORT DEVICES: None. HEART / MEDIASTINUM: No significant abnormality. LUNGS / PLEURA: No significant pulmonary or pleural abnormality. No pneumothorax. ADDITIONAL FINDINGS: No significant additional findings. IMPRESSION: 1. No acute findings. No significant change. Signer Name: Sheng Gan MD Signed: 11/12/2018 6:13 PM Workstation Name: [id number]
[2018-11-12 18:22] LABS: Albumin 3.6 g/dL (3.9-5); BUN/Creatinine Ratio 15; Blood Urea Nitrogen 12 mg/dL (9-20); Calcium 8.7 mg/dL (8.4-10.2); Hemolysis Index 348
[2018-11-12 18:28] LABS: Alanine Aminotransferase 8 units/L (7-56)
[2018-11-12] MEDS ORDERED: NACL 0.9% 1000 ML IV ONE (18:39)
[2018-11-12 19:09] LABS: Hematocrit 38.7 % (35.5-45.6); Hemoglobin 13.1 gm/dl (11.8-15.2); Mean Corpuscular HGB Conc 34 % (32-34); Mean Corpuscular Volume 91 fl (84-94); Platelet Count 115 K/mm3 (140-440); Red Blood Count 4.26 M/mm3 (3.65-5.03)
[2018-11-12] MEDS ORDERED: ROCEPHIN/NS 1 GM/50 ML 1 GM/50 ML BAG IV ONE (19:30)
[2018-11-12 19:31] LABS: Basophils % (Manual) 0 % (0.0-1.8); Eosinophils % (Manual) 0 % (0.0-4.3); Total Cells Counted 100
[2018-11-12 19:32] LABS: Platelet Estimate Appears Decreased; RBC Morphology Normal
[2018-11-12 19:43] LABS: Bilirubin,Urine NEG (Negative); Blood,Urine LG (Negative); Color,Urine Yellow (Yellow); Mucus,Urine 1+ /HPF; Urobilinogen,Urine < 2.0 mg/dL (<2.0)
[2018-11-12] MEDS ORDERED: TORADOL IV ONE (19:59)
[2018-11-12] MEDS ORDERED: ZOFRAN ONE (20:03)
[2018-11-12] MEDS ORDERED: TORADOL ONE (20:03)
[2018-11-12] MEDS ORDERED: ZOFRAN IV ONE (20:06)
--- NOTE | 2018-11-12 20:57 | Cat Scan Report ---
CT HEAD WITHOUT CONTRAST INDICATION / CLINICAL INFORMATION: confusion, generalized weakness. TECHNIQUE: All CT scans at this location are performed using CT dose reduction for ALARA by means of automated e xposure control. COMPARISON: Head CT 09/11/2017 FINDINGS: HEMORRHAGE: No evidence of intracranial hemorrhage or extra-axial fluid collection. EXTRA-AXIAL SPACES: Cortical sulci and sylvian fissures are enlarged reflecting a degree of parenchym al volume loss which is greater than expected for the patient's age of 68 years. Basilar cisterns hav e an unremarkable appearance. VENTRICULAR SYSTEM: Ex vacuo dilatation of the frontal horn of the lateral ventricles is noted second susannah to adjacent remote small deep infarction. This finding has developed since previous study 09/12/19 18. The third and lateral ventricles are enlarged reflecting resonance of age related parenchymal vol ume loss. CEREBRAL PARENCHYMA: Periventricular and deep white matter lucency is observed. This is probably seco ndary to microvascular ischemic change. Area of encephalomalacia is seen adjacent to the dilated fron ariel horn of the right lateral ventricle secondary to remote infarction. Several areas of decreased si gnal intensity are seen in a gangliocapsular distribution bilaterally consistent with remote small de ep infarction. There is evidence of remote small deep infarction at the junction of the anterior limb of the internal capsule on the caudate nucleus on the left. This is unchanged. There is no indicati on of recent infarction. MIDLINE SHIFT OR HERNIATION: There is no mass effect. CEREBELLUM / BRAINSTEM: Brainstem and cerebellum have an unremarkable appearance. INTRACRANIAL VESSELS: Extensively calcified atherosclerotic plaque is present along the course of the cavernous segments of both internal carotid arteries. Similar findings are seen at the distal verteb ral arteries. ORBITS: visualized portions of the orbits have an unremarkable appearance. SOFT TISSUES of HEAD: No significant abnormality. CALVARIUM: Evaluation of bone windows reveals no abnormalities. PARANASAL SINUSES / MASTOID AIR CELLS: Inflammatory changes are present within several ethmoid air ce lls bilaterally. Paranasal sinuses are otherwise free from inflammatory mucosal disease. Mastoid air cells are normally pneumatized. IMPRESSION: 1. 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 2. No acute intracranial abnormalities are identified. 3. Moderate atrophy and age-related microvascular ischemic change. Signer Name: Ko Puente MD Signed: 11/12/2018 8:52 PM Workstation Name: [id number]
--- NOTE | 2018-11-12 21:49 | XRay Report ---
Lumbar spine series, 2 views. CLINICAL HISTORY: Low back pain. Urinary tract infections. TECHNIQUE: AP and lateral digital radiographs of the lumbar spine were obtained. FINDINGS: Normal alignment is maintained throughout the lumbar region. There is no indication of fracture. Disc height is fairly well-maintained. Vertebral bodies, pedicles, transverse processes and spinous proce sses all appear to be intact. Moderate facet arthropathy is suspected at the L3-4, L4-5 and L5-S1 lev els. Note is made of multiple calcified phleboliths within the pelvis. IMPRESSION: 1. Facet arthropathy at the L3-4, L4-5 and L5-S1 levels. 2. No indication of fracture. Signer Name: Ko Puente MD Signed: 11/12/2018 9:44 PM Workstation Name: [id number]
[2018-11-12] MEDS ORDERED: ZOFRAN IV PRN (22:45)
[2018-11-12] MEDS ORDERED: TYLENOL PO PRN (22:45)
[2018-11-12] MEDS ORDERED: SODIUM CHLORIDE FLUSH SYRINGE 10 ML IV PRN (22:45)
[2018-11-12] MEDS ORDERED: PERCOCET 5/325 PO PRN (22:45)
--- NOTE | 2018-11-12 22:47 | History and Physical Report ---
History of Present Illness Date of examination: 11/12/18 History of present illness: 68-year-old man with history of hypertension, BPH, PE, osteoarthritis was brought to the ER for evaluation. Family at bedside staes he was in bed all day, felt weak and soiled the bed, Had not eaten or drink anything.He is back to baseline now. Complain of back, sharp, no radiation, intensity 5/10. Review of systems Constitutional: no weight loss, chills, fever Ears, eyes, nose, mouth and throat: no nasal congestion, no nasal discharge, no sinus pressure, no vision change, no red eye. Neck: No neck pain or rigidity. Cardiovascular: no palpitations, chest pain Respiratory: no cough, shortness of breath Gastrointestinal: no abdominal pain hematochezia Genitourinary : no frequency , no hematuria Musculoskeletal: no joint swelling or muscle ache Integumentary: no rash, no pruritis Neurological: no parathesias, no numbness, no focal weakness Endocrine: no cold or heat intolerance, no polyuria or polydipsia Hematologic/Lymphatic: no easy bruising, no easy bleeding, no gland swelling Allergic/Immunologic: no urticaria, no angioedema. PAST MEDICAL HISTORY: hypertension BPH, PE, osteoarthritis PAST SURGICAL HISTORY: Neck Surgery SOCIAL HISTORY: No tobacco, alcohol, no drugs FAMILY HISTORY: Hypertension Medications and Allergies Allergies Allergy/AdvReac Type Severity Reaction Status Date / Time shrimp Allergy Unknown Verified 09/12/17 14:19 Home Medications Medication Instructions Recorded Confirmed Last Taken Type Ergocalciferol [Vitamin D2] 50,000 units PO QWEEK 09/11/17 11/12/18 12/05/17 History Lisinopril [Zestril] 10 mg PO QDAY 09/11/17 11/13/18 11/10/18 History Simvastatin (Nf) [Zocor TAB] 20 mg PO QPM 09/11/17 11/13/18 11/10/18 History Tamsulosin [Flomax] 0.4 mg PO QDAY 09/11/17 11/13/18 11/10/18 History amLODIPine [Norvasc] 10 mg PO QDAY 09/11/17 11/13/18 11/10/18 History Apixaban [Eliquis] 5 mg PO Q12HR #42 tablet 12/08/17 11/13/18 11/10/18 Rx oxyCODONE /ACETAMINOPHEN [Percocet 1 tab PO BID PRN #10 tablet 12/08/17 11/13/18 Unknown Rx 5/325 mg] levoFLOXacin [Levaquin] 750 mg PO QDAY #7 tablet 11/13/18 Unknown Rx Exam - Physical Exam Narrative exam: Gen. appearance: Patient lying in bed, no apparent distress HEENT: Normocephalic, atraumatic, pupils equally round and reactive to light, extraocular movement intact, and no sclericterus,. No JVD or thyromegaly or nodule,neck supple, no carotid bruit ,mucous membranes moist, no exudate or erythema Heart: S1, S2, regular rate and rhythm Lungs: Clear bilaterally, breathing comfortable Abdomen: Positive bowel sounds, non-tender, nondistended, no organomegaly Extremity:no edema cyanosis, clubbing Skin: no rash, dry, warm Neuro: Oriented 3, cranial nerves II-12 intact, speech is fluent, motor and sensory intact - Constitutional Vitals: Temp Pulse Resp BP Pulse Ox 99.5 F 97 H 25 H 145/81 100 11/12/18 17:39 11/12/18 19:15 11/12/18 19:15 11/12/18 19:15 11/12/18 18:09 Results - Labs CBC & Chem 7: 11/13/18 06:06 11/13/18 06:06 Labs: Abnormal lab results 11/12/18 11/12/18 11/12/18 Range/Units 17:44 17:44 17:44 WBC (4.5-11.0) K/mm3 Plt Count (140-440) K/mm3 Seg Neuts % (Manual) (40.0-70.0) % Lymphocytes % (Manual) (13.4-35.0) % Monocytes % (Manual) (0.0-7.3) % Seg Neutrophils # Man (1.8-7.7) K/mm3 Monocytes # (Manual) (0.0-0.8) K/mm3 VBG pH 7.441 H (7.320-7.420) Sodium 135 L (137-145) mmol/L Potassium 5.2 H (3.6-5.0) mmol/L Carbon Dioxide 19 L (22-30) mmol/L Glucose 105 H (75-100) mg/dL Lactic Acid 2.50 H* (0.7-2.0) mmol/L Total Protein 9.0 H (6.3-8.2) g/dL Albumin 3.6 L (3.9-5) g/dL 11/12/18 Range/Units 18:45 WBC 12.1 H (4.5-11.0) K/mm3 Plt Count 115 L (140-440) K/mm3 Seg Neuts % (Manual) 80.0 H (40.0-70.0) % Lymphocytes % (Manual) 10.0 L (13.4-35.0) % Monocytes % (Manual) 10.0 H (0.0-7.3) % Seg Neutrophils # Man 9.7 H (1.8-7.7) K/mm3 Monocytes # (Manual) 1.2 H (0.0-0.8) K/mm3 VBG pH (7.320-7.420) Sodium (137-145) mmol/L Potassium (3.6-5.0) mmol/L Carbon Dioxide (22-30) mmol/L Glucose (75-100) mg/dL Lactic Acid (0.7-2.0) mmol/L Total Protein (6.3-8.2) g/dL Albumin (3.9-5) g/dL - Imaging and Cardiology Chest x-ray: report reviewed CT Scan - head: report reviewed Assessment and Plan lumbar xray reviewed Assessment back pain SIRS Hypertension Pulmonary emboli BPH thrombocytopenia Plan Admit to medicine Obtain CT of spine Start IV antibiotic, follow cultures continue eliquis and appropiate outpatient medications
[2018-11-12] MEDS ORDERED: NACL 0.45% 1000 ML 1,000 ML IV SCH (23:00)
--- NOTE | 2018-11-12 23:58 | Cat Scan Report ---
CT lumbar spine wo con INDICATION / CLINICAL INFORMATION: Back pain and weakness. TECHNIQUE: All CT scans at this location are performed using CT dose reduction for ALARA by means of automated e xposure control. COMPARISON: None available. FINDINGS: The bones are diffusely demineralized. There is minimal degenerative disc disease at multiple levels. There are mild hypertrophic changes involving the facet joints in the lower lumbar spine bilaterally . There are mild degenerative changes involving the SI joints. Slight anterior wedging of the L1 vert ebral body appears old. No retropulsed fragment is seen. I see no evidence of acute fracture, subluxation or destructive lesion. There is mild bulging of the elbow 4-5 and L5-S1 disc without focal disc herniation. I see no evidence of an epidural hematoma or mass. There are marked atherosclerotic calcifications involving the aorta without aneurysm. IMPRESSION: 1. Mild spondylosis without acute abnormality. 2. Slight anterior wedging of the L1 vertebral body appears old. Signer Name: Chad Frazier MD Signed: 11/12/2018 11:54 PM Workstation Name: [id number]
--- NOTE | 2018-11-13 00:03 | Cat Scan Report ---
CT thoracic spine wo con INDICATION / CLINICAL INFORMATION: Back pain and weakness. TECHNIQUE: All CT scans at this location are performed using CT dose reduction for ALARA by means of automated e xposure control. COMPARISON: None available. FINDINGS: There is moderately advanced degenerative disc disease at T1-2. There is mild posterior spurring at t hat level. Moderate anterior spurring is also present. There are mild degenerative changes in the rem ainder of the thoracic spine. There are surgical changes in the lower cervical spine. I see no evidence of fracture or subluxation. There is no evidence of destructive lesion. I see no ev idence of a focal disc herniation or epidural hematoma. The visualized portions of the lungs are unre markable. IMPRESSION: Moderately advanced degenerative disc disease at T1-2. No significant central canal steno sis is appreciated. Signer Name: Chad Frazier MD Signed: 11/12/2018 11:59 PM Workstation Name: [id number]
[2018-11-13 06:35] LABS: Basophils % (Auto) 0.4 % (0.0-1.8); Eosinophils % (Auto) 0.4 % (0.0-4.3); Hematocrit 35.3 % (35.5-45.6); Hemoglobin 12.3 gm/dl (11.8-15.2); Lymphocytes # (Auto) 1.3 K/mm3 (1.2-5.4); Lymphocytes % (Auto) 17.6 % (13.4-35.0); Mean Corpuscular HGB Conc 35 % (32-34); Mean Corpuscular Volume 90 fl (84-94); Monocytes # (Auto) 0.8 K/mm3 (0.0-0.8); Monocytes % (Auto) 11.6 % (0.0-7.3); Platelet Count 114 K/mm3 (140-440); Red Blood Count 3.93 M/mm3 (3.65-5.03); Red Cell Distribution Width 15.1 % (13.2-15.2)
[2018-11-13 06:50] LABS: BUN/Creatinine Ratio 13; Blood Urea Nitrogen 8 mg/dL (9-20); Calcium 8.3 mg/dL (8.4-10.2); Hemolysis Index 3
[2018-11-13] MEDS ORDERED: ROCEPHIN/NS 1 GM/50 ML 1 GM/50 ML BAG IV SCH (10:00)
[2018-11-13] MEDS ORDERED: SODIUM CHLORIDE FLUSH SYRINGE 10 ML IV SCH (10:00)
--- NOTE | 2018-11-13 15:56 | Progress Note ---
Subjective Date of service: 11/13/18 Objective - Constitutional Vitals: Vital Signs - 12hr 11/13/18 11/13/18 04:06 07:59 Temperature 98.3 F Pulse Rate 83 Respiratory 18 Rate Blood Pressure 141/77 O2 Sat by Pulse 96 100 Oximetry General appearance: Present: no acute distress, well-nourished - EENT Eyes: PERRL, EOM intact ENT: hearing intact, clear oral mucosa Ears: bilateral: normal - Neck Neck: supple, normal ROM - Respiratory Respiratory effort: normal Respiratory: bilateral: CTA - Breasts Breasts: normal - Cardiovascular Rhythm: regular Heart Sounds: Present: S1 & S2. Absent: gallop, rub Extremities: pulses intact, No edema, normal color, Full ROM - Gastrointestinal General gastrointestinal: Present: soft, non-tender, non-distended, normal bowel sounds - Genitourinary Male genitourinary: normal - Integumentary Integumentary: clear, warm, dry - Musculoskeletal Musculoskeletal: 1, strength equal bilaterally - Neurologic Neurologic: moves all extremities - Psychiatric Psychiatric: memory intact, appropriate mood/affect, intact judgment & insight - Labs CBC & Chem 7: 11/13/18 06:06 11/13/18 06:06 Labs: Abnormal lab results 11/12/18 11/12/18 11/12/18 Range/Units 17:44 17:44 17:44 WBC (4.5-11.0) K/mm3 Hct (35.5-45.6) % MCHC (32-34) % Plt Count (140-440) K/mm3 [place] % (Auto) (0.0-7.3) % Seg Neuts % (Manual) (40.0-70.0) % Lymphocytes % (Manual) (13.4-35.0) % Monocytes % (Manual) (0.0-7.3) % Seg Neutrophils # Man (1.8-7.7) K/mm3 Monocytes # (Manual) (0.0-0.8) K/mm3 VBG pH 7.441 H (7.320-7.420) Sodium 135 L (137-145) mmol/L Potassium 5.2 H (3.6-5.0) mmol/L Carbon Dioxide 19 L (22-30) mmol/L BUN (9-20) mg/dL Creatinine (0.8-1.5) mg/dL Glucose 105 H (75-100) mg/dL Lactic Acid 2.50 H* (0.7-2.0) mmol/L Calcium (8.4-10.2) mg/dL Total Protein 9.0 H (6.3-8.2) g/dL Albumin 3.6 L (3.9-5) g/dL 11/12/18 11/13/18 11/13/18 Range/Units 18:45 06:06 06:06 WBC 12.1 H (4.5-11.0) K/mm3 Hct 35.3 L (35.5-45.6) % MCHC 35 H (32-34) % Plt Count 115 L 114 L (140-440) K/mm3 [place] % (Auto) 11.6 H (0.0-7.3) % Seg Neuts % (Manual) 80.0 H (40.0-70.0) % Lymphocytes % (Manual) 10.0 L (13.4-35.0) % Monocytes % (Manual) 10.0 H (0.0-7.3) % Seg Neutrophils # Man 9.7 H (1.8-7.7) K/mm3 Monocytes # (Manual) 1.2 H (0.0-0.8) K/mm3 VBG pH (7.320-7.420) Sodium (137-145) mmol/L Potassium 3.4 L D (3.6-5.0) mmol/L Carbon Dioxide (22-30) mmol/L BUN 8 L (9-20) mg/dL Creatinine 0.6 L (0.8-1.5) mg/dL Glucose (75-100) mg/dL Lactic Acid (0.7-2.0) mmol/L Calcium 8.3 L (8.4-10.2) mg/dL Total Protein (6.3-8.2) g/dL Albumin (3.9-5) g/dL
--- NOTE | 2018-11-13 16:16 | Discharge Summary ---
Providers - Providers Date of Admission: 11/12/18 22:45 Date of discharge: 11/13/18 Attending physician: OSVALDO STEVENSON 11/13/18 12:38 Physical Therapy Evaluation and Treat [CONS] Routine Comment: Reason For Exam: Weakness Primary care physician: DONIS WINCHESTER Hospitalization Condition: Stable Hospital course: SIRS back pain Hypertension Pulmonary emboli BPH thrombocytopenia Plan IV antibiotic, follow cultures continue eliquis and appropiate outpatient medications Doing well.Wants to go home SIRS will d/c on Levaquin Disposition: DC-01 TO HOME OR SELFCARE Core Measure Documentation - Palliative Care Palliative Care/ Comfort Measures: Not Applicable - Core Measures Any of the following diagnoses?: none Exam - Constitutional Vitals: Temp Pulse Resp BP Pulse Ox 98.3 F 83 18 141/77 100 11/13/18 07:59 11/13/18 07:59 11/13/18 07:59 11/13/18 07:59 11/13/18 07:59 General appearance: Present: no acute distress, well-nourished - EENT Eyes: Present: PERRL ENT: hearing intact, clear oral mucosa - Neck Neck: Present: supple, normal ROM - Respiratory Respiratory effort: normal Respiratory: bilateral: CTA - Cardiovascular Heart rate: 78 Rhythm: regular (78) Heart Sounds: Present: S1 & S2. Absent: rub, click - Extremities Extremities: no ischemia, pulses intact, pulses symmetrical, No edema Peripheral Pulses: within normal limits - Abdominal General gastrointestinal: Present: soft, non-tender, non-distended, normal bowel sounds Male genitourinary: Present: normal - Integumentary Integumentary: Present: clear, warm, dry - Musculoskeletal Musculoskeletal: gait normal, strength equal bilaterally - Psychiatric Psychiatric: appropriate mood/affect, intact judgment & insight - Neurologic Neurologic: CNII-XII intact, moves all extremities - Allied Health Allied health notes reviewed: nursing, case management Plan Activity: no restrictions Diet: regular Follow up with: DONIS WINCHESTER MD [Primary Care Provider] - 7 Days
[2018-11-13 17:16] VITALS: BP 144/77
== END 2018-11-13 20:05 | disposition home or self-care (01) | DRG 552 ==
LOC: ED 17:16 → 2B-ACE 22:45
PROVIDERS: ADMIT Internal Medicine; ATTEND Internal Medicine
DX: M54.9 Dorsalgia, unspecified (principal); R65.10 Systemic inflammatory response syndrome (SIRS) of non-infectious origin without acute organ dysfunction; N40.0 Benign prostatic hyperplasia without lower urinary tract symptoms; D69.6 Thrombocytopenia, unspecified; F17.200 Nicotine dependence, unspecified, uncomplicated; E86.0 Dehydration; I10 Essential (primary) hypertension; Z79.01 Long term (current) use of anticoagulants; Z86.711 Personal history of pulmonary embolism; Z88.8 Allergy status to other drugs, medicaments and biological substances; Z82.49 Family history of ischemic heart disease and other diseases of the circulatory system
CPT/HCPCS: 36415; 70450; 71045; 72100; 72128; 72131; 80048; 80053; 81001; 82140; 82805; 84484; 85007; 85025; 87040; 87086; 93005; 93010; 96361; 96365; 96375; G0378; J0696; J1885; J2405; J7030

== ENCOUNTER 2018-11-19 08:34 | Day surgery (SDC) | payer MEDICARE | END 2018-11-19 09:00 | disposition home or self-care (01) | LOC: CATHLABREC 08:34 | PROVIDERS: ATTEND Specialist | DX: R91.8 Other nonspecific abnormal finding of lung field (principal); E78.00 Pure hypercholesterolemia, unspecified; I10 Essential (primary) hypertension; M19.90 Unspecified osteoarthritis, unspecified site; Z53.8 Procedure and treatment not carried out for other reasons; Z79.899 Other long term (current) drug therapy; Z88.8 Allergy status to other drugs, medicaments and biological substances; Z86.711 Personal history of pulmonary embolism; Z79.01 Long term (current) use of anticoagulants; Z72.89 Other problems related to lifestyle; Z98.890 Other specified postprocedural states ==